=== PATIENT | male | born 1955 | race Caucasian/White ===

== ENCOUNTER 2020-12-09 10:56 | Inpatient (IN) | payer MEDICARE, MEDICAID ==
[~2020-12-09] VITALS: Ht 162.6 cm; Wt 87.1 kg
[2020-12-09 10:30] VITALS: BP 121/83
[2020-12-09] MEDS ORDERED: ACETAMINOPHEN 325 MG TABLET PO PRN (11:30)
[2020-12-09] MEDS ORDERED: METHYL SALICYLATE/MENTHOL TOPICAL OINTMENT 57GM TUBE. TP PRN (11:30)
[2020-12-09] MEDS ORDERED: MAG HYDROX/AL HYDROX/SIMETH 30 ML ORAL.SUSP PO PRN (11:30)
[2020-12-09] MEDS ORDERED: MAGNESIUM HYDROXIDE 2,400 MG/30 ML ORAL.SUSP. PO PRN (11:30)
[2020-12-09 12:24] LABS: BASO # 0.1 x10^3/uL (0.0-0.2); BASO % 1 % (0-3); EOS # 0.2 x10^3/uL (0.0-0.7); EOS % 5 % (0-3); HEMATOCRIT 40.4 % (39.0-53.0); HEMOGLOBIN 13.6 g/dL (13.0-17.5); LYMPH # 1.1 x10^3/uL (1.0-4.8); LYMPH % 24 % (24-48); MEAN CORPUSCULAR HEMOGLOBIN 33 pg (25-35); MEAN CORPUSCULAR HGB CONC 34 g/dL (31-37); MEAN CORPUSCULAR VOLUME 97 fL (79-100); MONO # 0.6 x10^3/uL (0.0-1.1); MONO % 12 % (0-9); NEUT # 2.8 x10^3uL (1.8-7.7); NEUT % 59 % (31-73); PLATELET COUNT 344 x10^3/uL (140-400); RED BLOOD COUNT 4.15 x10^6/uL (4.30-5.70); RED CELL DISTRIBUTION WIDTH 13.9 % (11.5-14.5); WHITE BLOOD COUNT 4.8 x10^3/uL (4.0-11.0)
[2020-12-09 12:40] LABS: ALBUMIN 3.8 g/dL (3.4-5.0); CALCIUM 9.8 mg/dL (8.5-10.1); GFR 74.8; MAGNESIUM 1.7 mg/dL (1.8-2.4); POTASSIUM 3.2 mmol/L (3.5-5.1); TOTAL BILIRUBIN 0.4 mg/dL (0.2-1.0); TOTAL PROTEIN 7.7 g/dL (6.4-8.2)
[2020-12-09] MEDS ORDERED: OLAN10TA9 PO (16:50)
[2020-12-09] MEDS ORDERED: PANT40TA3 PO (16:50)
[2020-12-09] MEDS ORDERED: CARB15DR72 EACH EAR (16:50)
[2020-12-09] MEDS ORDERED: LOSA100T14 PO (16:50)
[2020-12-09] MEDS ORDERED: HYDR12.58 PO (16:50)
[2020-12-09] MEDS ORDERED: CETI10TA16 PO (16:50)
[2020-12-09] MEDS ORDERED: AMLO-186 PO (16:50)
[2020-12-09] MEDS ORDERED: ATOR20TA58 PO (16:50)
[2020-12-09] MEDS ORDERED: METF500T16 PO (16:50)
[2020-12-09] MEDS: metFORMIN 500 MG TABLET PO SCH (17:00)
[2020-12-09 20:09] VITALS: BP 147/90
[2020-12-09] MEDS: ATORVASTATIN CALCIUM 20 MG TABLET PO SCH (21:01)
[2020-12-09] MEDS: DIVALPROEX ER 500 MG TAB.ER.24H PO SCH (21:47)
--- NOTE | 2020-12-09 21:59 | PDOC ---
Exam Note: Blair Note: Please also refer to the separate dictated note~for this date of service dictated separately.~Patient seen individually. Discussed the patient with Nursing staff reviewed the chart.~Reviewed interim history and current functioning. Reviewed vital signs,~Labs/ Radiology~and current medications noted below. Continue current treatment with the changes noted in the dictated addendum note Assessment: Vital Signs/I&O: Vital Signs Date Time Temp Pulse Resp B/P (MAP) Pulse Ox O2 Delivery O2 Flow Rate FiO2 12/09/20 20:09 97.6 83 18 147/90 (109) 94 Room Air Labs: Laboratory Tests Test 12/09/20 12:02 White Blood Count 4.8 x10^3/uL (4.0-11.0) Red Blood Count 4.15 x10^6/uL (4.30-5.70) L Hemoglobin 13.6 g/dL (13.0-17.5) Hematocrit 40.4 % (39.0-53.0) Mean Corpuscular Volume 97 fL (79-100) Mean Corpuscular Hemoglobin 33 pg (25-35) Mean Corpuscular Hemoglobin Concent 34 g/dL (31-37) Red Cell Distribution Width 13.9 % (11.5-14.5) Platelet Count 344 x10^3/uL (140-400) Neutrophils (%) (Auto) 59 % (31-73) Lymphocytes (%) (Auto) 24 % (24-48) Monocytes (%) (Auto) 12 % (0-9) H Eosinophils (%) (Auto) 5 % (0-3) H Basophils (%) (Auto) 1 % (0-3) Neutrophils # (Auto) 2.8 x10^3uL (1.8-7.7) Lymphocytes # (Auto) 1.1 x10^3/uL (1.0-4.8) Monocytes # (Auto) 0.6 x10^3/uL (0.0-1.1) Eosinophils # (Auto) 0.2 x10^3/uL (0.0-0.7) Basophils # (Auto) 0.1 x10^3/uL (0.0-0.2) D-Dimer (Radha) 1.45 mg/L (0.00-0.50) H Sodium Level 142 mmol/L (136-145) Potassium Level 3.2 mmol/L (3.5-5.1) L Chloride Level 104 mmol/L (98-107) Carbon Dioxide Level 30 mmol/L (21-32) Anion Gap 8 (6-14) Blood Urea Nitrogen 15 mg/dL (8-26) Creatinine 1.0 mg/dL (0.7-1.3) Estimated GFR (Cockcroft-Gault) 74.8 BUN/Creatinine Ratio 15 (6-20) Glucose Level 157 mg/dL (70-99) H Calcium Level 9.8 mg/dL (8.5-10.1) Magnesium Level 1.7 mg/dL (1.8-2.4) L Total Bilirubin 0.4 mg/dL (0.2-1.0) Aspartate Amino Transferase (AST) 35 U/L (15-37) Alanine Aminotransferase (ALT) 56 U/L (16-63) Alkaline Phosphatase 65 U/L (46-116) Total Protein 7.7 g/dL (6.4-8.2) Albumin 3.8 g/dL (3.4-5.0) Albumin/Globulin Ratio 1.0 (1.0-1.7) Current Medications: Meds: Current Medications Medications (Trade) Dose Ordered Sig/Dionne Route PRN Reason Start Time Stop Time Status Last Admin Dose Admin Atorvastatin Calcium (Lipitor) 20 mg QHS PO 12/09/20 21:00 12/09/20 21:01 Divalproex Sodium (Depakote Er) 500 mg QHS PO 12/09/20 21:00 12/09/20 21:47 I have reviewed the current psychotropics carefully including drug interactions. Risk benefit ratio favors no change other than as noted in my dictated progress note. Diagnosis: Problems: (1) Bipolar disorder MARILOU COURTNEY MD Dec 09, 2020 21:59
[2020-12-10 02:06] LABS: BILIRUBIN,URINE NEG (NEG); CLARITY,URINE CLEAR; COLOR,URINE YELLOW; GLUCOSE,URINE 100 mg/dL (NEG)
[2020-12-10 02:07] LABS: BACTERIA,URINE 0 /HPF (0-FEW); NITRITE,URINE NEG (NEG); RBC,URINE 0 /HPF (0-2); UROBILINOGEN,URINE 0.2 mg/dL (0.2 mg/dL); WBC,URINE OCC /HPF (0-4)
[2020-12-10 02:07] LABS: HEMOGLOBIN A1C 7.7 % (4.8-5.6); THYROXINE 7.5 ug/dL (4.5-12.0)
[2020-12-10 06:02] VITALS: BP 155/83
--- NOTE | 2020-12-10 06:35 | EKG ---
[address] [address] Test Date: 2020-12-09 Test Time: 17:06:24 Pat Name: LENNOX DE Department: Room: [address] [place] [address] Gender: M Line Cook: : 1955 Requested By: MARILOU COURTNEY Order Number: [id number] Reading MD: Measurements Intervals [place] Rate: P: ID: QRS: QRSD: T: QT: QTc: Interpretive Statements
[2020-12-10] MEDS: hydroCHLOROthiazide 12.5 MG CAPSULE PO SCH (08:14)
[2020-12-10] MEDS: PANTOPRAZOLE 40 MG TABLET. PO SCH (08:14)
[2020-12-10] MEDS: amLODIPine BESYLATE 5 MG TABLET PO SCH (08:14)
[2020-12-10] MEDS: LOSARTAN 50 MG TABLET. PO SCH (08:14)
[2020-12-10] MEDS: OLANZapine 10 MG TABLET PO SCH (08:14)
[2020-12-10] MEDS: metFORMIN 500 MG TABLET PO SCH ×2 (08:14→17:06)
[2020-12-10] MEDS: CETIRIZINE HCL 10 MG TABLET PO SCH (08:14)
--- NOTE | 2020-12-10 09:19 | HP ---
ADMIT DATE: 12/09/2020 IDENTIFYING DATA: The patient is a 64-year-old male, referred to us from [facility], referred by his outpatient psychiatrist/primary care physician on account of an acute exacerbation of his bipolar disorder and recent altered mental status with increased confusion. The patient has been increasingly agitated with marked mood lability, unable to be managed at the nursing facility, disruptive, aggressive. He has failed outpatient psychiatric interventions resulting in this referral. CHIEF COMPLAINT: "This sent me here for a checkup." HISTORY OF PRESENT ILLNESS: The patient has a history of bipolar disorder. He has been residing at the above facility for some time recently getting more confused, worsening mood swings, sleep and appetite changes. No active suicidal or homicidal ideation. PAST PSYCHIATRIC HISTORY: As above. MEDICAL HISTORY: Hyperlipidemia, type 2 diabetes mellitus. He has bilateral blindness, atelectasis in lungs of 12/05/2020. CODE STATUS: Full code. ALLERGIES: PLASTIC. Accu-Cheks daily. DIET: Takes a whole diet, finger foods. No added sugar or salt. ACTIVITY: Ambulate supervised only since he is blind. FAMILY HISTORY: Noncontributory. SOCIAL HISTORY: No history of alcohol or drug abuse, physical, sexual or elder abuse. He is not known to be a perpetrator. Reaction to hospitalization, the patient accepting of it. REVIEW OF SYSTEMS: Positive for bilateral blindness. No CV, , pulmonary, eye system symptoms on review. MENTAL STATUS EXAM: Oriented to himself. Insight, judgment, recent memory is impaired. Language function intact. Attention span short. Later on questioning, he was able to tell me he was admitted earlier today where he came from, perhaps less confused than he initially appeared. He remained somewhat manic. No suicidal or homicidal ideation. ASSETS: Supportive living at the above facility. IMPRESSION: Bipolar disorder, mixed with psychotic features; anxiety disorder, unspecified; impulse control disorder, unspecified; mild cognitive impairment. PLAN: Admit to the [facility] Unit at [facility]. I see the patient daily individually from a psychiatric standpoint. Medical followup with Dr. Pham/Dr. Chawla. Continue patient on his current psychotropics, observe baseline. Consider adding Depakote as a mood stabilizer. In fact, after a thorough review of his history and medications, we will go ahead and start Depakote ER 500 mg p.o. at bedtime. Check CBC, CMP, valproic acid level in 3 days. Continue Zyprexa 10 mg at bedtime for now. Estimated length of stay 10-12 days. DISPOSITION: Plans back to the intermediate when stable. ASHU/BLAIR/ALEXIA DR: ASHU/homer TID: [id number]
[2020-12-10 15:36] LABS: THYROID STIM HORMONE (TSH) 0.813 uIU/mL (0.358-3.740)
[2020-12-10 15:52] VITALS: BP 108/62
[2020-12-10] MEDS: DIVALPROEX ER 500 MG TAB.ER.24H PO SCH (21:31)
[2020-12-10] MEDS: ATORVASTATIN CALCIUM 20 MG TABLET PO SCH (21:31)
[2020-12-10] MEDS: MIRTAZAPINE 7.5 MG TABLET. PO SCH (21:31)
--- NOTE | 2020-12-10 22:14 | PDOC ---
Exam Note: Blair Note: Please also refer to the separate dictated note~for this date of service dictated separately.~Patient seen individually. Discussed the patient with Nursing staff reviewed the chart.~Reviewed interim history and current functioning. Reviewed vital signs,~Labs/ Radiology~and current medications noted below. Continue current treatment with the changes noted in the dictated addendum note Assessment: Vital Signs/I&O: Vital Signs Date Time Temp Pulse Resp B/P (MAP) Pulse Ox O2 Delivery O2 Flow Rate FiO2 12/10/20 15:52 97.3 85 18 108/62 (77) 94 Room Air I & O 12/09/20 12/09/20 12/10/20 15:00 23:00 07:00 Intake Total 362 ml 480 ml Balance 362 ml 480 ml Labs: Laboratory Tests Test 12/10/20 01:40 Urine Collection Type Unknown Urine Color Yellow Urine Clarity Clear Urine pH 6.5 Urine Specific [place] 1.015 Urine Protein Neg (NEG-TRACE) Urine Glucose (UA) 100 mg/dL (NEG) Urine Ketones (Stick) Neg mg/dL (NEG) Urine Blood Neg (NEG) Urine Nitrite Neg (NEG) Urine Bilirubin Neg (NEG) Urine Urobilinogen Dipstick 0.2 mg/dL (0.2 mg/dL) Urine Leukocyte Esterase Neg (NEG) Urine RBC 0 /HPF (0-2) Urine WBC Occ /HPF (0-4) Urine Squamous Epithelial Cells None /LPF Urine Bacteria 0 /HPF (0-FEW) Current Medications: Meds: Laboratory Tests Test 12/10/20 01:40 Urine Collection Type Unknown Urine Color Yellow Urine Clarity Clear Urine pH 6.5 Urine Specific [place] 1.015 Urine Protein Neg Urine Glucose (UA) 100 mg/dL Urine Ketones (Stick) Neg mg/dL Urine Blood Neg Urine Nitrite Neg Urine Bilirubin Neg Urine Urobilinogen Dipstick 0.2 mg/dL Urine Leukocyte Esterase Neg Urine RBC 0 /HPF Urine WBC Occ /HPF Urine Squamous Epithelial Cells None /LPF Urine Bacteria 0 /HPF Current Medications Medications (Trade) Dose Ordered Sig/Dionne Route PRN Reason Start Time Stop Time Status Last Admin Dose Admin Acetaminophen (Tylenol) 650 mg PRN Q6HRS PRN PO MILD PAIN / TEMP > 100.3'F 12/09/20 11:30 Multi-Ingredient Ointment (Analgesic [place]) 1 ayanna PRN QID PRN TP MUSCLE PAIN 12/09/20 11:30 Al Hydroxide/Mg Hydroxide (Mylanta Plus Xs) 15 ml PRN AFTMEALHC PRN PO DYSPEPSIA 12/09/20 11:30 Magnesium Hydroxide (Milk Of Magnesia) 2,400 mg PRN QHS PRN PO CONSTIPATION 12/09/20 11:30 Amlodipine Besylate (Norvasc) 5 mg DAILY PO 12/10/20 09:00 12/10/20 08:14 Atorvastatin Calcium (Lipitor) 20 mg QHS PO 12/09/20 21:00 12/10/20 21:31 Carbamide Peroxide (Debrox) 1 drop QMONTH AU 12/25/20 09:00 Cetirizine HCl (ZyrTEC) 10 mg DAILY PO 12/10/20 09:00 12/10/20 08:14 Metformin HCl (Glucophage) 500 mg BIDWMEALS PO 12/09/20 17:00 12/10/20 17:06 Olanzapine (ZyPREXA) 10 mg DAILY PO 12/10/20 09:00 12/10/20 08:14 Pantoprazole Sodium (Protonix) 40 mg DAILYAC PO 12/10/20 07:30 12/10/20 08:14 Hydrochlorothiazide (Microzide) 12.5 mg DAILY PO 12/10/20 09:00 12/10/20 08:14 Losartan Potassium (Cozaar) 100 mg DAILY PO 12/10/20 09:00 12/10/20 08:14 Divalproex Sodium (Depakote Er) 500 mg QHS PO 12/09/20 21:00 12/10/20 21:31 Potassium Chloride (Klor-Con) 20 meq DAILYWBKFT PO 12/11/20 08:00 Mirtazapine (Remeron) 7.5 mg QHS PO 12/10/20 21:00 12/10/20 21:31 Current Medications Medications (Trade) Dose Ordered Sig/Dionne Route PRN Reason Start Time Stop Time Status Last Admin Dose Admin Amlodipine Besylate (Norvasc) 5 mg DAILY PO 12/10/20 09:00 12/10/20 08:14 Cetirizine HCl (ZyrTEC) 10 mg DAILY PO 12/10/20 09:00 12/10/20 08:14 Olanzapine (ZyPREXA) 10 mg DAILY PO 12/10/20 09:00 12/10/20 08:14 Pantoprazole Sodium (Protonix) 40 mg DAILYAC PO 12/10/20 07:30 12/10/20 08:14 Hydrochlorothiazide (Microzide) 12.5 mg DAILY PO 12/10/20 09:00 12/10/20 08:14 Losartan Potassium (Cozaar) 100 mg DAILY PO 12/10/20 09:00 12/10/20 08:14 Mirtazapine (Remeron) 7.5 mg QHS PO 12/10/20 21:00 12/10/20 21:31 I have reviewed the current psychotropics carefully including drug interactions. Risk benefit ratio favors no change other than as noted in my dictated progress note. Diagnosis: Problems: (1) Anxiety disorder, unspecified (2) Impulse control disorder, unspecified (3) Mild cognitive impairment (4) Bipolar disorder, current episode mixed, severe, with psychotic features MARILOU COURTNEY MD Dec 10, 2020 22:14
[2020-12-11 06:29] VITALS: BP 125/80
[2020-12-11] MEDS: CETIRIZINE HCL 10 MG TABLET PO SCH (08:47)
[2020-12-11] MEDS: hydroCHLOROthiazide 12.5 MG CAPSULE PO SCH (08:47)
[2020-12-11] MEDS: POTASSIUM CHLORIDE 10 MEQ TABLET.ER. PO SCH (08:48)
[2020-12-11] MEDS: metFORMIN 500 MG TABLET PO SCH ×2 (08:48→17:11)
[2020-12-11] MEDS: LOSARTAN 50 MG TABLET. PO SCH (08:48)
[2020-12-11] MEDS: PANTOPRAZOLE 40 MG TABLET. PO SCH (08:48)
[2020-12-11] MEDS: amLODIPine BESYLATE 5 MG TABLET PO SCH (08:48)
[2020-12-11] MEDS: OLANZapine 10 MG TABLET PO SCH (08:48)
[2020-12-11] MEDS ORDERED: traZODone 50 MG TABLET. PO PRN (15:45)
[2020-12-11 15:47] VITALS: BP 127/78
[2020-12-11] MEDS: ATORVASTATIN CALCIUM 20 MG TABLET PO SCH (21:15)
[2020-12-11] MEDS: DIVALPROEX ER 500 MG TAB.ER.24H PO SCH (21:15)
[2020-12-11] MEDS: MIRTAZAPINE 7.5 MG TABLET. PO SCH (21:15)
--- NOTE | 2020-12-11 21:51 | PDOC ---
Exam Note: Blair Note: Please also refer to the separate dictated note~for this date of service dictated separately.~Patient seen individually. Discussed the patient with Nursing staff reviewed the chart.~Reviewed interim history and current functioning. Reviewed vital signs,~Labs/ Radiology~and current medications noted below. Continue current treatment with the changes noted in the dictated addendum note Assessment: Vital Signs/I&O: Vital Signs Date Time Temp Pulse Resp B/P (MAP) Pulse Ox O2 Delivery O2 Flow Rate FiO2 12/11/20 15:47 98.3 85 16 127/78 (94) 95 Room Air I & O 12/10/20 12/10/20 12/11/20 15:00 23:00 07:00 Intake Total 480 ml 480 ml Balance 480 ml 480 ml Current Medications: Meds: Current Medications Medications (Trade) Dose Ordered Sig/Dionne Route PRN Reason Start Time Stop Time Status Last Admin Dose Admin Acetaminophen (Tylenol) 650 mg PRN Q6HRS PRN PO MILD PAIN / TEMP > 100.3'F 12/09/20 11:30 Multi-Ingredient Ointment (Analgesic [place]) 1 ayanna PRN QID PRN TP MUSCLE PAIN 12/09/20 11:30 Al Hydroxide/Mg Hydroxide (Mylanta Plus Xs) 15 ml PRN AFTMEALHC PRN PO DYSPEPSIA 12/09/20 11:30 Magnesium Hydroxide (Milk Of Magnesia) 2,400 mg PRN QHS PRN PO CONSTIPATION 12/09/20 11:30 Amlodipine Besylate (Norvasc) 5 mg DAILY PO 12/10/20 09:00 12/11/20 08:48 Atorvastatin Calcium (Lipitor) 20 mg QHS PO 12/09/20 21:00 12/11/20 21:15 Carbamide Peroxide (Debrox) 1 drop QMONTH AU 12/25/20 09:00 Cetirizine HCl (ZyrTEC) 10 mg DAILY PO 12/10/20 09:00 12/11/20 08:47 Metformin HCl (Glucophage) 500 mg BIDWMEALS PO 12/09/20 17:00 12/11/20 17:11 Olanzapine (ZyPREXA) 10 mg DAILY PO 12/10/20 09:00 12/11/20 08:48 Pantoprazole Sodium (Protonix) 40 mg DAILYAC PO 12/10/20 07:30 5/1/21 08:48 Hydrochlorothiazide (Microzide) 12.5 mg DAILY PO 12/10/20 09:00 12/11/20 11:11 DC 12/11/20 08:47 Losartan Potassium (Cozaar) 100 mg DAILY PO 12/10/20 09:00 12/11/20 08:48 Divalproex Sodium (Depakote Er) 500 mg QHS PO 12/09/20 21:00 12/11/20 21:15 Potassium Chloride (Klor-Con) 20 meq DAILYWBKFT PO 12/11/20 08:00 12/11/20 08:48 Mirtazapine (Remeron) 7.5 mg QHS PO 12/10/20 21:00 12/11/20 21:15 Trazodone HCl (Desyrel) 50 mg PRN QHS PRN PO INSOMNIA MAY REPEAT X 1 12/11/20 15:45 12/11/20 21:16 Current Medications Medications (Trade) Dose Ordered Sig/Dionne Route PRN Reason Start Time Stop Time Status Last Admin Dose Admin Potassium Chloride (Klor-Con) 20 meq DAILYWBKFT PO 12/11/20 08:00 12/11/20 08:48 Trazodone HCl (Desyrel) 50 mg PRN QHS PRN PO INSOMNIA MAY REPEAT X 1 12/11/20 15:45 12/11/20 21:16 I have reviewed the current psychotropics carefully including drug interactions. Risk benefit ratio favors no change other than as noted in my dictated progress note. Diagnosis: Problems: (1) Impulse control disorder, unspecified (2) Mild cognitive impairment (3) Anxiety disorder, unspecified (4) Bipolar disorder, current episode mixed, severe, with psychotic features MARILOU COURTNEY MD December 11, 2020 21:51
--- NOTE | 2020-12-12 03:26 | CONS ---
DATE OF CONSULTATION: 12/11/2020 ATTENDING PHYSICIANS: Dr. Pizarro. REASON FOR CONSULTATION: We are asked to see this patient for medical consultation. HISTORY OF PRESENT ILLNESS: The patient is a 64-year-old gentleman from [facility] with a longstanding history of bipolar disorder, dementia and some mental retardation. He is legally blind. He has been very destructive. He has destroyed his room. He has had a manic episode, had not slept in 3 days, hearing voices, auditory hallucinations, increased confusion and disorganized. He was sent here from [place]. There were plans to go to a care home. He is here for further treatment and evaluation. His primary care doctor is Dr. Aiken at [place]. PAST MEDICAL HISTORY: Indicative for hyperlipidemia and essential hypertension as well as diabetes, adult onset. CURRENT MEDICATIONS: Include the following: He was on amlodipine, atorvastatin, cetirizine, hydrochlorothiazide, losartan, metformin, olanzapine and Protonix. ALLERGIES: HE HAS ALLERGIES TO PLASTICS, EXACT REACTION IS UNCLEAR OR WHAT KIND OF PLASTICS REMAINS TO BE SEEN THAT IS ON THE RECORD. FAMILY HISTORY: Unobtainable. REVIEW OF SYSTEMS: Unobtainable. PHYSICAL EXAMINATION: GENERAL: When I saw him, this is a pleasant gentleman who is legally blind. He has to be left to his room. VITAL SIGNS: Initial blood pressure was 125/80, pulse is 89 and regular, temperature 97.5 degrees Fahrenheit, oxygen saturation 94% on room air. HEENT: Head is without trauma. Pupils are reactive. He is legally blind. NECK: Supple, no bruits. LUNGS: Clear. CARDIOVASCULAR: Showed regular heart tones. No gallops. ABDOMEN: Soft, obese, protuberant. No organomegaly. Normoactive bowel sounds. EXTREMITIES: Show mild nonpitting edema. NEUROLOGIC FINDING: Pleasantly confused. He is ambulatory, but he is not aware of the situation. SKIN: Warm and dry. PERTINENT LABORATORY STUDIES: His hemoglobin on admission was 13.6 g/dL with a white count of 4800. Chemistry panel showed serum potassium of 3.3 mEq per liter, sodium 142 mEq, creatinine is 1.0 mg/dL. Nonfasting blood sugar 157. Hemoglobin A1c is 7.7 suggesting moderate control. Iron studies are normal. Transaminase and cholesterol are all within normal range. ASSESSMENT: 1. This is a 64-year-old gentleman, retirement patient, has bipolar disorder. He has had a recent manic phase. At this time, he appears medically stable. 2. Essential hypertension. 3. Type 2 diabetes with moderate control. 4. Mild asymptomatic hypokalemia due to his low dose diuretics. RECOMMENDATIONS: 1. The patient is stable from medical standpoint. 2. I would recommend some daily potassium supplementation with a recheck of chemistries on the schedule Mondays for inpatient. 3. I took the liberty of stopping his low dose hydrochlorothiazide. He has a little benefits, but causes significant electrolyte problems. 4. Other home meds will be continued. Thank you again for asking us to see this patient for medical consultation. We shall gladly follow along during his inpatient care. SAM/ABUNDIO DR: CYNDI/homer TID: [id number]
[2020-12-12 06:16] VITALS: BP 154/94
[2020-12-12] MEDS: metFORMIN 500 MG TABLET PO SCH ×2 (09:10→17:00)
[2020-12-12] MEDS: PANTOPRAZOLE 40 MG TABLET. PO SCH (09:11)
[2020-12-12] MEDS: CETIRIZINE HCL 10 MG TABLET PO SCH (09:11)
[2020-12-12] MEDS: POTASSIUM CHLORIDE 10 MEQ TABLET.ER. PO SCH (09:11)
[2020-12-12] MEDS: OLANZapine 10 MG TABLET PO SCH (09:11)
[2020-12-12] MEDS: amLODIPine BESYLATE 5 MG TABLET PO SCH (09:11)
[2020-12-12] MEDS: LOSARTAN 50 MG TABLET. PO SCH (09:11)
[2020-12-12 10:09] LABS: BASO % 1 % (0-3); EOS # 0.2 x10^3/uL (0.0-0.7); EOS % 4 % (0-3); HEMATOCRIT 39.7 % (39.0-53.0); HEMOGLOBIN 13.2 g/dL (13.0-17.5); LYMPH # 1.4 x10^3/uL (1.0-4.8); LYMPH % 23 % (24-48); MEAN CORPUSCULAR HEMOGLOBIN 32 pg (25-35); MEAN CORPUSCULAR HGB CONC 33 g/dL (31-37); MEAN CORPUSCULAR VOLUME 97 fL (79-100); MONO # 0.5 x10^3/uL (0.0-1.1); MONO % 8 % (0-9); NEUT % 65 % (31-73); PLATELET COUNT 303 x10^3/uL (140-400); RED BLOOD COUNT 4.11 x10^6/uL (4.30-5.70); RED CELL DISTRIBUTION WIDTH 13.9 % (11.5-14.5); WHITE BLOOD COUNT 6.2 x10^3/uL (4.0-11.0)
[2020-12-12 10:43] LABS: ALBUMIN 3.5 g/dL (3.4-5.0); ALBUMIN/GLOBULIN RATIO 0.9 (1.0-1.7); ALK PHOS 61 U/L (46-116); ALT (SGPT) 41 U/L (16-63); ANION GAP 10 (6-14); AST (SGOT) 23 U/L (15-37); BLOOD UREA NITROGEN 17 mg/dL (8-26); BUN/CREATININE RATIO 17 (6-20); CALCIUM 9.5 mg/dL (8.5-10.1); CARBON DIOXIDE 27 mmol/L (21-32); CHLORIDE 106 mmol/L (98-107); GFR 74.8; GLUCOSE 208 mg/dL (70-99); POTASSIUM 3.7 mmol/L (3.5-5.1); SODIUM 143 mmol/L (136-145); TOTAL BILIRUBIN 0.5 mg/dL (0.2-1.0); TOTAL PROTEIN 7.2 g/dL (6.4-8.2)
[2020-12-12 10:54] LABS: VAL ACID 54 mcg/mL (50-100)
[2020-12-12 16:12] VITALS: BP 118/83
[2020-12-12] MEDS: MIRTAZAPINE 7.5 MG TABLET. PO SCH (21:01)
[2020-12-12] MEDS: DIVALPROEX ER 500 MG TAB.ER.24H PO SCH (21:02)
[2020-12-12] MEDS: ATORVASTATIN CALCIUM 20 MG TABLET PO SCH (21:02)
--- NOTE | 2020-12-12 21:54 | PDOC ---
Exam Note: Blair Note: Please also refer to the separate dictated note~for this date of service dictated separately.~Patient seen individually. Discussed the patient with Nursing staff reviewed the chart.~Reviewed interim history and current functioning. Reviewed vital signs,~Labs/ Radiology~and current medications noted below. Continue current treatment with the changes noted in the dictated addendum note Assessment: Vital Signs/I&O: Vital Signs Date Time Temp Pulse Resp B/P (MAP) Pulse Ox O2 Delivery O2 Flow Rate FiO2 12/12/20 16:12 97.2 85 16 118/83 (95) 92 12/12/20 06:16 Room Air I & O 12/11/20 12/11/20 12/12/20 15:00 23:00 07:00 Intake Total 840 ml 720 ml Balance 840 ml 720 ml Labs: Laboratory Tests Test 12/12/20 09:40 White Blood Count 6.2 x10^3/uL (4.0-11.0) Red Blood Count 4.11 x10^6/uL (4.30-5.70) L Hemoglobin 13.2 g/dL (13.0-17.5) Hematocrit 39.7 % (39.0-53.0) Mean Corpuscular Volume 97 fL (79-100) Mean Corpuscular Hemoglobin 32 pg (25-35) Mean Corpuscular Hemoglobin Concent 33 g/dL (31-37) Red Cell Distribution Width 13.9 % (11.5-14.5) Platelet Count 303 x10^3/uL (140-400) Neutrophils (%) (Auto) 65 % (31-73) Lymphocytes (%) (Auto) 23 % (24-48) L Monocytes (%) (Auto) 8 % (0-9) Eosinophils (%) (Auto) 4 % (0-3) H Basophils (%) (Auto) 1 % (0-3) Neutrophils # (Auto) 4.0 x10^3uL (1.8-7.7) Lymphocytes # (Auto) 1.4 x10^3/uL (1.0-4.8) Monocytes # (Auto) 0.5 x10^3/uL (0.0-1.1) Eosinophils # (Auto) 0.2 x10^3/uL (0.0-0.7) Basophils # (Auto) 0.0 x10^3/uL (0.0-0.2) Sodium Level 143 mmol/L (136-145) Potassium Level 3.7 mmol/L (3.5-5.1) Chloride Level 106 mmol/L (98-107) Carbon Dioxide Level 27 mmol/L (21-32) Anion Gap 10 (6-14) Blood Urea Nitrogen 17 mg/dL (8-26) Creatinine 1.0 mg/dL (0.7-1.3) Estimated GFR (Cockcroft-Gault) 74.8 BUN/Creatinine Ratio 17 (6-20) Glucose Level 208 mg/dL (70-99) H Calcium Level 9.5 mg/dL (8.5-10.1) Total Bilirubin 0.5 mg/dL (0.2-1.0) Aspartate Amino Transferase (AST) 23 U/L (15-37) Alanine Aminotransferase (ALT) 41 U/L (16-63) Alkaline Phosphatase 61 U/L (46-116) Total Protein 7.2 g/dL (6.4-8.2) Albumin 3.5 g/dL (3.4-5.0) Albumin/Globulin Ratio 0.9 (1.0-1.7) L Valproic Acid Level 54 mcg/mL (50-100) Valproic Acid Last Dose Date 12/11/20 Valproic Acid Last Dose Time 2100 Current Medications: Meds: Laboratory Tests Test 12/12/20 09:40 White Blood Count 6.2 x10^3/uL Red Blood Count 4.11 x10^6/uL Hemoglobin 13.2 g/dL Hematocrit 39.7 % Mean Corpuscular Volume 97 fL Mean Corpuscular Hemoglobin 32 pg Mean Corpuscular Hemoglobin Concent 33 g/dL Red Cell Distribution Width 13.9 % Platelet Count 303 x10^3/uL Neutrophils (%) (Auto) 65 % Lymphocytes (%) (Auto) 23 % Monocytes (%) (Auto) 8 % Eosinophils (%) (Auto) 4 % Basophils (%) (Auto) 1 % Neutrophils # (Auto) 4.0 x10^3uL Lymphocytes # (Auto) 1.4 x10^3/uL Monocytes # (Auto) 0.5 x10^3/uL Eosinophils # (Auto) 0.2 x10^3/uL Basophils # (Auto) 0.0 x10^3/uL Sodium Level 143 mmol/L Potassium Level 3.7 mmol/L Chloride Level 106 mmol/L Carbon Dioxide Level 27 mmol/L Anion Gap 10 Blood Urea Nitrogen 17 mg/dL Creatinine 1.0 mg/dL Estimated GFR (Cockcroft-Gault) 74.8 BUN/Creatinine Ratio 17 Glucose Level 208 mg/dL Calcium Level 9.5 mg/dL Total Bilirubin 0.5 mg/dL Aspartate Amino Transf (AST/SGOT) 23 U/L Alanine Aminotransferase (ALT/SGPT) 41 U/L Alkaline Phosphatase 61 U/L Total Protein 7.2 g/dL Albumin 3.5 g/dL Albumin/Globulin Ratio 0.9 Valproic Acid (Depakene) Level 54 mcg/mL Valproic Acid Last Dose Date 12/11/20 Valproic Acid Last Dose Time 2100 Current Medications Medications (Trade) Dose Ordered Sig/Dionne Route PRN Reason Start Time Stop Time Status Last Admin Dose Admin Acetaminophen (Tylenol) 650 mg PRN Q6HRS PRN PO MILD PAIN / TEMP > 100.3'F 12/09/20 11:30 Multi-Ingredient Ointment (Analgesic [place]) 1 ayanna PRN QID PRN TP MUSCLE PAIN 12/09/20 11:30 Al Hydroxide/Mg Hydroxide (Mylanta Plus Xs) 15 ml PRN AFTMEALHC PRN PO DYSPEPSIA 12/09/20 11:30 Magnesium Hydroxide (Milk Of Magnesia) 2,400 mg PRN QHS PRN PO CONSTIPATION 12/09/20 11:30 Amlodipine Besylate (Norvasc) 5 mg DAILY PO 12/10/20 09:00 12/12/20 09:11 Atorvastatin Calcium (Lipitor) 20 mg QHS PO 12/09/20 21:00 12/12/20 21:02 Carbamide Peroxide (Debrox) 1 drop QMONTH AU 12/25/20 09:00 Cetirizine HCl (ZyrTEC) 10 mg DAILY PO 12/10/20 09:00 12/12/20 09:11 Metformin HCl (Glucophage) 500 mg BIDWMEALS PO 12/09/20 17:00 12/12/20 17:00 Olanzapine (ZyPREXA) 10 mg DAILY PO 12/10/20 09:00 12/12/20 09:11 Pantoprazole Sodium (Protonix) 40 mg DAILYAC PO 12/10/20 07:30 12/12/20 09:11 Hydrochlorothiazide (Microzide) 12.5 mg DAILY PO 12/10/20 09:00 12/11/20 11:11 DC 12/11/20 08:47 Losartan Potassium (Cozaar) 100 mg DAILY PO 12/10/20 09:00 12/12/20 09:11 Divalproex Sodium (Depakote Er) 500 mg QHS PO 12/09/20 21:00 12/12/20 21:02 Potassium Chloride (Klor-Con) 20 meq DAILYWBKFT PO 12/11/20 08:00 12/12/20 09:11 Mirtazapine (Remeron) 7.5 mg QHS PO 12/10/20 21:00 12/12/20 17:39 DC 12/11/20 21:15 Trazodone HCl (Desyrel) 50 mg PRN QHS PRN PO INSOMNIA MAY REPEAT X 1 12/11/20 15:45 12/11/20 21:16 Mirtazapine (Remeron) 15 mg QHS PO 12/12/20 21:00 12/12/20 21:01 Current Medications Medications (Trade) Dose Ordered Sig/Dionne Route PRN Reason Start Time Stop Time Status Last Admin Dose Admin Mirtazapine (Remeron) 15 mg QHS PO 12/12/20 21:00 12/12/20 21:01 I have reviewed the current psychotropics carefully including drug interactions. Risk benefit ratio favors no change other than as noted in my dictated progress note. Diagnosis: Problems: (1) Impulse control disorder, unspecified (2) Mild cognitive impairment (3) Anxiety disorder, unspecified (4) Bipolar disorder, current episode mixed, severe, with psychotic features MARILOU COURTNEY MD December 12, 2020 21:54
[2020-12-13 06:00] VITALS: BP 133/82
--- NOTE | 2020-12-13 06:47 | PDOC ---
Exam Note: Blair Note: This note is a late entry for 12/10/2020 covers elements not covered in my initial note. Subjective: The patient was reviewed in the morning of 12/10/2020 for a treatment team meeting with Natasha Young, Ita Samuels and Martina (geriatric social work professor), Iliana, activity therapy and Deyanira WAGNER, discussed and reviewed the chart. The patient slept 1-3/4 hours previous night. We reviewed the patients history at length. 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 Reportedly he was the youngest of 10 siblings. Some of the symptoms prompting admission were reviewed including not having slept in 3 days. He has been calm, hallucinating at times. At the facility he had destroyed his room and was destroying other objects around him. He was extremely impulsive. 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 Mental Status Exam: The patient is oriented to himself. Insight, judgment, recent memory is impaired. Language function intact. Attention span short. No suicidal or homicidal ideation. Laboratory Data: Reviewed. Impression: Bipolar disorder mixed with psychotic features. Anxiety disorder unspecified. Impulse control disorder unspecified. Mild cognitive impairment. Plan: Start Remeron 7.5 mg h.s. for insomnia. We may consider adding trazodone to this. Adjust further as clinically indicated. Assessment: Vital Signs/I&O: Vital Signs Date Time Temp Pulse Resp B/P (MAP) Pulse Ox O2 Delivery O2 Flow Rate FiO2 12/13/20 06:00 97.7 77 23 133/82 (99) 91 12/12/20 06:16 Room Air I & O 12/12/20 12/12/20 12/13/20 15:00 23:00 07:00 Intake Total 720 ml 600 ml Balance 720 ml 600 ml Labs: Laboratory Tests Test 12/12/20 09:40 White Blood Count 6.2 x10^3/uL (4.0-11.0) Red Blood Count 4.11 x10^6/uL (4.30-5.70) L Hemoglobin 13.2 g/dL (13.0-17.5) Hematocrit 39.7 % (39.0-53.0) Mean Corpuscular Volume 97 fL (79-100) Mean Corpuscular Hemoglobin 32 pg (25-35) Mean Corpuscular Hemoglobin Concent 33 g/dL (31-37) Red Cell Distribution Width 13.9 % (11.5-14.5) Platelet Count 303 x10^3/uL (140-400) Neutrophils (%) (Auto) 65 % (31-73) Lymphocytes (%) (Auto) 23 % (24-48) L Monocytes (%) (Auto) 8 % (0-9) Eosinophils (%) (Auto) 4 % (0-3) H Basophils (%) (Auto) 1 % (0-3) Neutrophils # (Auto) 4.0 x10^3uL (1.8-7.7) Lymphocytes # (Auto) 1.4 x10^3/uL (1.0-4.8) Monocytes # (Auto) 0.5 x10^3/uL (0.0-1.1) Eosinophils # (Auto) 0.2 x10^3/uL (0.0-0.7) Basophils # (Auto) 0.0 x10^3/uL (0.0-0.2) Sodium Level 143 mmol/L (136-145) Potassium Level 3.7 mmol/L (3.5-5.1) Chloride Level 106 mmol/L (98-107) Carbon Dioxide Level 27 mmol/L (21-32) Anion Gap 10 (6-14) Blood Urea Nitrogen 17 mg/dL (8-26) Creatinine 1.0 mg/dL (0.7-1.3) Estimated GFR (Cockcroft-Gault) 74.8 BUN/Creatinine Ratio 17 (6-20) Glucose Level 208 mg/dL (70-99) H Calcium Level 9.5 mg/dL (8.5-10.1) Total Bilirubin 0.5 mg/dL (0.2-1.0) Aspartate Amino Transferase (AST) 23 U/L (15-37) Alanine Aminotransferase (ALT) 41 U/L (16-63) Alkaline Phosphatase 61 U/L (46-116) Total Protein 7.2 g/dL (6.4-8.2) Albumin 3.5 g/dL (3.4-5.0) Albumin/Globulin Ratio 0.9 (1.0-1.7) L Valproic Acid Level 54 mcg/mL (50-100) Valproic Acid Last Dose Date 12/11/20 Valproic Acid Last Dose Time 2100 Current Medications: Meds: Laboratory Tests Test 12/12/20 09:40 White Blood Count 6.2 x10^3/uL Red Blood Count 4.11 x10^6/uL Hemoglobin 13.2 g/dL Hematocrit 39.7 % Mean Corpuscular Volume 97 fL Mean Corpuscular Hemoglobin 32 pg Mean Corpuscular Hemoglobin Concent 33 g/dL Red Cell Distribution Width 13.9 % Platelet Count 303 x10^3/uL Neutrophils (%) (Auto) 65 % Lymphocytes (%) (Auto) 23 % Monocytes (%) (Auto) 8 % Eosinophils (%) (Auto) 4 % Basophils (%) (Auto) 1 % Neutrophils # (Auto) 4.0 x10^3uL Lymphocytes # (Auto) 1.4 x10^3/uL Monocytes # (Auto) 0.5 x10^3/uL Eosinophils # (Auto) 0.2 x10^3/uL Basophils # (Auto) 0.0 x10^3/uL Sodium Level 143 mmol/L Potassium Level 3.7 mmol/L Chloride Level 106 mmol/L Carbon Dioxide Level 27 mmol/L Anion Gap 10 Blood Urea Nitrogen 17 mg/dL Creatinine 1.0 mg/dL Estimated GFR (Cockcroft-Gault) 74.8 BUN/Creatinine Ratio 17 Glucose Level 208 mg/dL Calcium Level 9.5 mg/dL Total Bilirubin 0.5 mg/dL Aspartate Amino Transf (AST/SGOT) 23 U/L Alanine Aminotransferase (ALT/SGPT) 41 U/L Alkaline Phosphatase 61 U/L Total Protein 7.2 g/dL Albumin 3.5 g/dL Albumin/Globulin Ratio 0.9 Valproic Acid (Depakene) Level 54 mcg/mL Valproic Acid Last Dose Date 12/11/20 Valproic Acid Last Dose Time 2100 Current Medications Medications (Trade) Dose Ordered Sig/Dionne Route PRN Reason Start Time Stop Time Status Last Admin Dose Admin Acetaminophen (Tylenol) 650 mg PRN Q6HRS PRN PO MILD PAIN / TEMP > 100.3'F 12/09/20 11:30 Multi-Ingredient Ointment (Analgesic [place]) 1 ayanna PRN QID PRN TP MUSCLE PAIN 12/09/20 11:30 Al Hydroxide/Mg Hydroxide (Mylanta Plus Xs) 15 ml PRN AFTMEALHC PRN PO DYSPEPSIA 12/09/20 11:30 Magnesium Hydroxide (Milk Of Magnesia) 2,400 mg PRN QHS PRN PO CONSTIPATION 12/09/20 11:30 Amlodipine Besylate (Norvasc) 5 mg DAILY PO 12/10/20 09:00 12/12/20 09:11 Atorvastatin Calcium (Lipitor) 20 mg QHS PO 12/09/20 21:00 12/12/20 21:02 Carbamide Peroxide (Debrox) 1 drop QMONTH AU 12/25/20 09:00 Cetirizine HCl (ZyrTEC) 10 mg DAILY PO 12/10/20 09:00 12/12/20 09:11 Metformin HCl (Glucophage) 500 mg BIDWMEALS PO 12/09/20 17:00 12/12/20 17:00 Olanzapine (ZyPREXA) 10 mg DAILY PO 12/10/20 09:00 12/12/20 09:11 Pantoprazole Sodium (Protonix) 40 mg DAILYAC PO 12/10/20 07:30 12/12/20 09:11 Hydrochlorothiazide (Microzide) 12.5 mg DAILY PO 12/10/20 09:00 12/11/20 11:11 DC 12/11/20 08:47 Losartan Potassium (Cozaar) 100 mg DAILY PO 12/10/20 09:00 12/12/20 09:11 Divalproex Sodium (Depakote Er) 500 mg QHS PO 12/09/20 21:00 12/12/20 21:02 Potassium Chloride (Klor-Con) 20 meq DAILYWBKFT PO 12/11/20 08:00 12/12/20 09:11 Mirtazapine (Remeron) 7.5 mg QHS PO 12/10/20 21:00 12/12/20 17:39 DC 12/11/20 21:15 Trazodone HCl (Desyrel) 50 mg PRN QHS PRN PO INSOMNIA MAY REPEAT X 1 12/11/20 15:45 12/11/20 21:16 Mirtazapine (Remeron) 15 mg QHS PO 12/12/20 21:00 12/12/20 21:01 Current Medications Medications (Trade) Dose Ordered Sig/Dionne Route PRN Reason Start Time Stop Time Status Last Admin Dose Admin Mirtazapine (Remeron) 15 mg QHS PO 12/12/20 21:00 12/12/20 21:01 I have reviewed the current psychotropics carefully including drug interactions. Risk benefit ratio favors no change other than as noted in my dictated progress note. Diagnosis: Problems: (1) Bipolar disorder, current episode mixed, severe, with psychotic features (2) Mild cognitive impairment (3) Impulse control disorder, unspecified (4) Anxiety disorder, unspecified MARILOU COURTNEY MD December 13, 2020 06:47
--- NOTE | 2020-12-13 07:22 | PDOC ---
Exam Note: Blair Note: This note is a late entry for 12/11/2020 covers elements not covered in my initial note. Subjective: The patient was seen individually in the evening of 12/11/2020 with Omid WAGNER, discussed and reviewed the chart. The patient slept poorly for 2 hours previous night. We will make it sure that the staff gives him his Zyprexa p.r.n. 50 mg, may repeat x1. Review of Systems: Bilateral blindness. No CV, , pulmonary, ENT system symptoms on review. Mental Status Exam: The patient is oriented to himself. Insight, judgment, recent memory is impaired. Language function intact. Attention span short. No suicidal or homicidal ideation. Laboratory Data: Reviewed. Impression: Bipolar disorder mixed with psychotic features. Anxiety disorder unspecified. Impulse control disorder unspecified. Plan: We will continue Remeron 7.5 mg h.s. We will consider increasing it later. Start trazodone 50 mg h.s. p.r.n. h.s., may repeat x1. Adjust further as clinically indicated. Assessment: Vital Signs/I&O: Vital Signs Date Time Temp Pulse Resp B/P (MAP) Pulse Ox O2 Delivery O2 Flow Rate FiO2 12/13/20 06:00 97.7 77 23 133/82 (99) 91 12/12/20 06:16 Room Air I & O 12/12/20 12/12/20 12/13/20 15:00 23:00 07:00 Intake Total 720 ml 600 ml Balance 720 ml 600 ml Labs: Laboratory Tests Test 12/12/20 09:40 White Blood Count 6.2 x10^3/uL (4.0-11.0) Red Blood Count 4.11 x10^6/uL (4.30-5.70) L Hemoglobin 13.2 g/dL (13.0-17.5) Hematocrit 39.7 % (39.0-53.0) Mean Corpuscular Volume 97 fL (79-100) Mean Corpuscular Hemoglobin 32 pg (25-35) Mean Corpuscular Hemoglobin Concent 33 g/dL (31-37) Red Cell Distribution Width 13.9 % (11.5-14.5) Platelet Count 303 x10^3/uL (140-400) Neutrophils (%) (Auto) 65 % (31-73) Lymphocytes (%) (Auto) 23 % (24-48) L Monocytes (%) (Auto) 8 % (0-9) Eosinophils (%) (Auto) 4 % (0-3) H Basophils (%) (Auto) 1 % (0-3) Neutrophils # (Auto) 4.0 x10^3uL (1.8-7.7) Lymphocytes # (Auto) 1.4 x10^3/uL (1.0-4.8) Monocytes # (Auto) 0.5 x10^3/uL (0.0-1.1) Eosinophils # (Auto) 0.2 x10^3/uL (0.0-0.7) Basophils # (Auto) 0.0 x10^3/uL (0.0-0.2) Sodium Level 143 mmol/L (136-145) Potassium Level 3.7 mmol/L (3.5-5.1) Chloride Level 106 mmol/L (98-107) Carbon Dioxide Level 27 mmol/L (21-32) Anion Gap 10 (6-14) Blood Urea Nitrogen 17 mg/dL (8-26) Creatinine 1.0 mg/dL (0.7-1.3) Estimated GFR (Cockcroft-Gault) 74.8 BUN/Creatinine Ratio 17 (6-20) Glucose Level 208 mg/dL (70-99) H Calcium Level 9.5 mg/dL (8.5-10.1) Total Bilirubin 0.5 mg/dL (0.2-1.0) Aspartate Amino Transferase (AST) 23 U/L (15-37) Alanine Aminotransferase (ALT) 41 U/L (16-63) Alkaline Phosphatase 61 U/L (46-116) Total Protein 7.2 g/dL (6.4-8.2) Albumin 3.5 g/dL (3.4-5.0) Albumin/Globulin Ratio 0.9 (1.0-1.7) L Valproic Acid Level 54 mcg/mL (50-100) Valproic Acid Last Dose Date 12/11/20 Valproic Acid Last Dose Time 2100 Current Medications: Meds: Laboratory Tests Test 12/12/20 09:40 White Blood Count 6.2 x10^3/uL Red Blood Count 4.11 x10^6/uL Hemoglobin 13.2 g/dL Hematocrit 39.7 % Mean Corpuscular Volume 97 fL Mean Corpuscular Hemoglobin 32 pg Mean Corpuscular Hemoglobin Concent 33 g/dL Red Cell Distribution Width 13.9 % Platelet Count 303 x10^3/uL Neutrophils (%) (Auto) 65 % Lymphocytes (%) (Auto) 23 % Monocytes (%) (Auto) 8 % Eosinophils (%) (Auto) 4 % Basophils (%) (Auto) 1 % Neutrophils # (Auto) 4.0 x10^3uL Lymphocytes # (Auto) 1.4 x10^3/uL Monocytes # (Auto) 0.5 x10^3/uL Eosinophils # (Auto) 0.2 x10^3/uL Basophils # (Auto) 0.0 x10^3/uL Sodium Level 143 mmol/L Potassium Level 3.7 mmol/L Chloride Level 106 mmol/L Carbon Dioxide Level 27 mmol/L Anion Gap 10 Blood Urea Nitrogen 17 mg/dL Creatinine 1.0 mg/dL Estimated GFR (Cockcroft-Gault) 74.8 BUN/Creatinine Ratio 17 Glucose Level 208 mg/dL Calcium Level 9.5 mg/dL Total Bilirubin 0.5 mg/dL Aspartate Amino Transf (AST/SGOT) 23 U/L Alanine Aminotransferase (ALT/SGPT) 41 U/L Alkaline Phosphatase 61 U/L Total Protein 7.2 g/dL Albumin 3.5 g/dL Albumin/Globulin Ratio 0.9 Valproic Acid (Depakene) Level 54 mcg/mL Valproic Acid Last Dose Date 12/11/20 Valproic Acid Last Dose Time 2100 Current Medications Medications (Trade) Dose Ordered Sig/Dionne Route PRN Reason Start Time Stop Time Status Last Admin Dose Admin Acetaminophen (Tylenol) 650 mg PRN Q6HRS PRN PO MILD PAIN / TEMP > 100.3'F 12/09/20 11:30 Multi-Ingredient Ointment (Analgesic [place]) 1 ayanna PRN QID PRN TP MUSCLE PAIN 12/09/20 11:30 Al Hydroxide/Mg Hydroxide (Mylanta Plus Xs) 15 ml PRN AFTMEALHC PRN PO DYSPEPSIA 12/09/20 11:30 Magnesium Hydroxide (Milk Of Magnesia) 2,400 mg PRN QHS PRN PO CONSTIPATION 12/09/20 11:30 Amlodipine Besylate (Norvasc) 5 mg DAILY PO 12/10/20 09:00 12/12/20 09:11 Atorvastatin Calcium (Lipitor) 20 mg QHS PO 12/09/20 21:00 12/12/20 21:02 Carbamide Peroxide (Debrox) 1 drop QMONTH AU 12/25/20 09:00 Cetirizine HCl (ZyrTEC) 10 mg DAILY PO 12/10/20 09:00 12/12/20 09:11 Metformin HCl (Glucophage) 500 mg BIDWMEALS PO 12/09/20 17:00 12/12/20 17:00 Olanzapine (ZyPREXA) 10 mg DAILY PO 12/10/20 09:00 12/12/20 09:11 Pantoprazole Sodium (Protonix) 40 mg DAILYAC PO 12/10/20 07:30 12/12/20 09:11 Hydrochlorothiazide (Microzide) 12.5 mg DAILY PO 12/10/20 09:00 12/11/20 11:11 DC 12/11/20 08:47 Losartan Potassium (Cozaar) 100 mg DAILY PO 12/10/20 09:00 12/12/20 09:11 Divalproex Sodium (Depakote Er) 500 mg QHS PO 12/09/20 21:00 12/12/20 21:02 Potassium Chloride (Klor-Con) 20 meq DAILYWBKFT PO 12/11/20 08:00 12/12/20 09:11 Mirtazapine (Remeron) 7.5 mg QHS PO 12/10/20 21:00 12/12/20 17:39 DC 12/11/20 21:15 Trazodone HCl (Desyrel) 50 mg PRN QHS PRN PO INSOMNIA MAY REPEAT X 1 12/11/20 15:45 12/11/20 21:16 Mirtazapine (Remeron) 15 mg QHS PO 12/12/20 21:00 12/12/20 21:01 Current Medications Medications (Trade) Dose Ordered Sig/Dionne Route PRN Reason Start Time Stop Time Status Last Admin Dose Admin Mirtazapine (Remeron) 15 mg QHS PO 12/12/20 21:00 12/12/20 21:01 I have reviewed the current psychotropics carefully including drug interactions. Risk benefit ratio favors no change other than as noted in my dictated progress note. Diagnosis: Problems: (1) Impulse control disorder, unspecified (2) Mild cognitive impairment (3) Anxiety disorder, unspecified (4) Bipolar disorder, current episode mixed, severe, with psychotic features MARILOU COURTNEY MD December 13, 2020 07:22
--- NOTE | 2020-12-13 07:47 | PDOC ---
Exam Note: Blair Note: This note is a late entry for 12/12/2020 covers elements not covered in my initial note. Subjective: The patient was seen individually in the evening of 12/12/2020 with Omid WAGNER, discussed and reviewed the chart. The patient slept for 2-1/2 hours previous night but trazodone was not repeated last night. We will go ahead and increase the Remeron to 15 mg p.o. h.s. to help with insomnia. Review of Systems: Positive for bilateral blindness. No CV, , pulmonary, ENT system symptoms on review. Mental Status Exam: The patient is oriented to himself. Insight, judgment, recent memory is impaired. Language function intact. Attention span short. No suicidal or homicidal ideation. Laboratory Data: Reviewed. Impression: Bipolar disorder mixed with psychotic features. Anxiety disorder unspecified. Impulse control disorder unspecified. Plan: Continue current psychotropics. Assessment: Vital Signs/I&O: Vital Signs Date Time Temp Pulse Resp B/P (MAP) Pulse Ox O2 Delivery O2 Flow Rate FiO2 12/13/20 06:00 97.7 77 23 133/82 (99) 91 12/12/20 06:16 Room Air I & O 12/12/20 12/12/20 12/13/20 14:59 22:59 06:59 Intake Total 720 ml 600 ml Balance 720 ml 600 ml Labs: Laboratory Tests Test 12/12/20 09:40 White Blood Count 6.2 x10^3/uL (4.0-11.0) Red Blood Count 4.11 x10^6/uL (4.30-5.70) L Hemoglobin 13.2 g/dL (13.0-17.5) Hematocrit 39.7 % (39.0-53.0) Mean Corpuscular Volume 97 fL (79-100) Mean Corpuscular Hemoglobin 32 pg (25-35) Mean Corpuscular Hemoglobin Concent 33 g/dL (31-37) Red Cell Distribution Width 13.9 % (11.5-14.5) Platelet Count 303 x10^3/uL (140-400) Neutrophils (%) (Auto) 65 % (31-73) Lymphocytes (%) (Auto) 23 % (24-48) L Monocytes (%) (Auto) 8 % (0-9) Eosinophils (%) (Auto) 4 % (0-3) H Basophils (%) (Auto) 1 % (0-3) Neutrophils # (Auto) 4.0 x10^3uL (1.8-7.7) Lymphocytes # (Auto) 1.4 x10^3/uL (1.0-4.8) Monocytes # (Auto) 0.5 x10^3/uL (0.0-1.1) Eosinophils # (Auto) 0.2 x10^3/uL (0.0-0.7) Basophils # (Auto) 0.0 x10^3/uL (0.0-0.2) Sodium Level 143 mmol/L (136-145) Potassium Level 3.7 mmol/L (3.5-5.1) Chloride Level 106 mmol/L (98-107) Carbon Dioxide Level 27 mmol/L (21-32) Anion Gap 10 (6-14) Blood Urea Nitrogen 17 mg/dL (8-26) Creatinine 1.0 mg/dL (0.7-1.3) Estimated GFR (Cockcroft-Gault) 74.8 BUN/Creatinine Ratio 17 (6-20) Glucose Level 208 mg/dL (70-99) H Calcium Level 9.5 mg/dL (8.5-10.1) Total Bilirubin 0.5 mg/dL (0.2-1.0) Aspartate Amino Transferase (AST) 23 U/L (15-37) Alanine Aminotransferase (ALT) 41 U/L (16-63) Alkaline Phosphatase 61 U/L (46-116) Total Protein 7.2 g/dL (6.4-8.2) Albumin 3.5 g/dL (3.4-5.0) Albumin/Globulin Ratio 0.9 (1.0-1.7) L Valproic Acid Level 54 mcg/mL (50-100) Valproic Acid Last Dose Date 12/11/20 Valproic Acid Last Dose Time 2100 Current Medications: Meds: Laboratory Tests Test 12/12/20 09:40 White Blood Count 6.2 x10^3/uL Red Blood Count 4.11 x10^6/uL Hemoglobin 13.2 g/dL Hematocrit 39.7 % Mean Corpuscular Volume 97 fL Mean Corpuscular Hemoglobin 32 pg Mean Corpuscular Hemoglobin Concent 33 g/dL Red Cell Distribution Width 13.9 % Platelet Count 303 x10^3/uL Neutrophils (%) (Auto) 65 % Lymphocytes (%) (Auto) 23 % Monocytes (%) (Auto) 8 % Eosinophils (%) (Auto) 4 % Basophils (%) (Auto) 1 % Neutrophils # (Auto) 4.0 x10^3uL Lymphocytes # (Auto) 1.4 x10^3/uL Monocytes # (Auto) 0.5 x10^3/uL Eosinophils # (Auto) 0.2 x10^3/uL Basophils # (Auto) 0.0 x10^3/uL Sodium Level 143 mmol/L Potassium Level 3.7 mmol/L Chloride Level 106 mmol/L Carbon Dioxide Level 27 mmol/L Anion Gap 10 Blood Urea Nitrogen 17 mg/dL Creatinine 1.0 mg/dL Estimated GFR (Cockcroft-Gault) 74.8 BUN/Creatinine Ratio 17 Glucose Level 208 mg/dL Calcium Level 9.5 mg/dL Total Bilirubin 0.5 mg/dL Aspartate Amino Transf (AST/SGOT) 23 U/L Alanine Aminotransferase (ALT/SGPT) 41 U/L Alkaline Phosphatase 61 U/L Total Protein 7.2 g/dL Albumin 3.5 g/dL Albumin/Globulin Ratio 0.9 Valproic Acid (Depakene) Level 54 mcg/mL Valproic Acid Last Dose Date 12/11/20 Valproic Acid Last Dose Time 2100 Current Medications Medications (Trade) Dose Ordered Sig/Dionne Route PRN Reason Start Time Stop Time Status Last Admin Dose Admin Acetaminophen (Tylenol) 650 mg PRN Q6HRS PRN PO MILD PAIN / TEMP > 100.3'F 12/09/20 11:30 Multi-Ingredient Ointment (Analgesic [place]) 1 ayanna PRN QID PRN TP MUSCLE PAIN 12/09/20 11:30 Al Hydroxide/Mg Hydroxide (Mylanta Plus Xs) 15 ml PRN AFTMEALHC PRN PO DYSPEPSIA 12/09/20 11:30 Magnesium Hydroxide (Milk Of Magnesia) 2,400 mg PRN QHS PRN PO CONSTIPATION 12/09/20 11:30 Amlodipine Besylate (Norvasc) 5 mg DAILY PO 12/10/20 09:00 12/12/20 09:11 Atorvastatin Calcium (Lipitor) 20 mg QHS PO 12/09/20 21:00 12/12/20 21:02 Carbamide Peroxide (Debrox) 1 drop QMONTH AU 12/25/20 09:00 Cetirizine HCl (ZyrTEC) 10 mg DAILY PO 12/10/20 09:00 12/12/20 09:11 Metformin HCl (Glucophage) 500 mg BIDWMEALS PO 12/09/20 17:00 12/12/20 17:00 Olanzapine (ZyPREXA) 10 mg DAILY PO 12/10/20 09:00 12/12/20 09:11 Pantoprazole Sodium (Protonix) 40 mg DAILYAC PO 12/10/20 07:30 12/12/20 09:11 Hydrochlorothiazide (Microzide) 12.5 mg DAILY PO 12/10/20 09:00 12/11/20 11:11 DC 12/11/20 08:47 Losartan Potassium (Cozaar) 100 mg DAILY PO 12/10/20 09:00 12/12/20 09:11 Divalproex Sodium (Depakote Er) 500 mg QHS PO 12/09/20 21:00 12/12/20 21:02 Potassium Chloride (Klor-Con) 20 meq DAILYWBKFT PO 12/11/20 08:00 12/12/20 09:11 Mirtazapine (Remeron) 7.5 mg QHS PO 12/10/20 21:00 12/12/20 17:39 DC 12/11/20 21:15 Trazodone HCl (Desyrel) 50 mg PRN QHS PRN PO INSOMNIA MAY REPEAT X 1 12/11/20 15:45 12/11/20 21:16 Mirtazapine (Remeron) 15 mg QHS PO 12/12/20 21:00 12/12/20 21:01 Current Medications Medications (Trade) Dose Ordered Sig/Dionne Route PRN Reason Start Time Stop Time Status Last Admin Dose Admin Mirtazapine (Remeron) 15 mg QHS PO 12/12/20 21:00 12/12/20 21:01 I have reviewed the current psychotropics carefully including drug interactions. Risk benefit ratio favors no change other than as noted in my dictated progress note. Diagnosis: Problems: (1) Impulse control disorder, unspecified (2) Mild cognitive impairment (3) Anxiety disorder, unspecified (4) Bipolar disorder, current episode mixed, severe, with psychotic features MARILOU COURTNEY MD December 13, 2020 07:46
[2020-12-13] MEDS: amLODIPine BESYLATE 5 MG TABLET PO SCH (07:58)
[2020-12-13] MEDS: LOSARTAN 50 MG TABLET. PO SCH (07:58)
[2020-12-13] MEDS: metFORMIN 500 MG TABLET PO SCH ×2 (07:59→17:15)
[2020-12-13] MEDS: POTASSIUM CHLORIDE 10 MEQ TABLET.ER. PO SCH (07:59)
[2020-12-13] MEDS: CETIRIZINE HCL 10 MG TABLET PO SCH (07:59)
[2020-12-13] MEDS: PANTOPRAZOLE 40 MG TABLET. PO SCH (07:59)
[2020-12-13] MEDS: OLANZapine 10 MG TABLET PO SCH (07:59)
[2020-12-13 15:45] VITALS: BP 128/77
[2020-12-13] MEDS ORDERED: traZODone 100 MG TABLET. PO PRN (18:30)
[2020-12-13] MEDS: DIVALPROEX ER 500 MG TAB.ER.24H PO SCH (19:58)
[2020-12-13] MEDS: ATORVASTATIN CALCIUM 20 MG TABLET PO SCH (19:59)
[2020-12-13] MEDS: MIRTAZAPINE 7.5 MG TABLET. PO SCH (19:59)
--- NOTE | 2020-12-13 21:52 | PDOC ---
Exam Note: Blair Note: Please also refer to the separate dictated note~for this date of service dictated separately.~Patient seen individually. Discussed the patient with Nursing staff reviewed the chart.~Reviewed interim history and current functioning. Reviewed vital signs,~Labs/ Radiology~and current medications noted below. Continue current treatment with the changes noted in the dictated addendum note Assessment: Vital Signs/I&O: Vital Signs Date Time Temp Pulse Resp B/P (MAP) Pulse Ox O2 Delivery O2 Flow Rate FiO2 12/13/20 15:45 97.3 82 18 128/77 (94) 93 12/12/20 06:16 Room Air I & O 12/12/20 12/12/20 12/13/20 15:00 23:00 07:00 Intake Total 720 ml 600 ml Balance 720 ml 600 ml Current Medications: Meds: Current Medications Medications (Trade) Dose Ordered Sig/Dionne Route PRN Reason Start Time Stop Time Status Last Admin Dose Admin Acetaminophen (Tylenol) 650 mg PRN Q6HRS PRN PO MILD PAIN / TEMP > 100.3'F 12/09/20 11:30 Multi-Ingredient Ointment (Analgesic [place]) 1 ayanna PRN QID PRN TP MUSCLE PAIN 12/09/20 11:30 Al Hydroxide/Mg Hydroxide (Mylanta Plus Xs) 15 ml PRN AFTMEALHC PRN PO DYSPEPSIA 12/09/20 11:30 Magnesium Hydroxide (Milk Of Magnesia) 2,400 mg PRN QHS PRN PO CONSTIPATION 12/09/20 11:30 Amlodipine Besylate (Norvasc) 5 mg DAILY PO 12/10/20 09:00 12/13/20 07:58 Atorvastatin Calcium (Lipitor) 20 mg QHS PO 12/09/20 21:00 12/13/20 19:59 Carbamide Peroxide (Debrox) 1 drop QMONTH AU 12/25/20 09:00 Cetirizine HCl (ZyrTEC) 10 mg DAILY PO 12/10/20 09:00 12/13/20 07:59 Metformin HCl (Glucophage) 500 mg BIDWMEALS PO 12/09/20 17:00 12/13/20 17:15 Olanzapine (ZyPREXA) 10 mg DAILY PO 12/10/20 09:00 12/13/20 07:59 Pantoprazole Sodium (Protonix) 40 mg DAILYAC PO 12/10/20 07:30 12/13/20 07:59 Hydrochlorothiazide (Microzide) 12.5 mg DAILY PO 12/10/20 09:00 12/11/20 11:11 DC 12/11/20 08:47 Losartan Potassium (Cozaar) 100 mg DAILY PO 12/10/20 09:00 12/13/20 07:58 Divalproex Sodium (Depakote Er) 500 mg QHS PO 12/09/20 21:00 12/13/20 19:58 Potassium Chloride (Klor-Con) 20 meq DAILYWBKFT PO 12/11/20 08:00 12/13/20 07:59 Mirtazapine (Remeron) 7.5 mg QHS PO 12/10/20 21:00 12/12/20 17:39 DC 12/11/20 21:15 Trazodone HCl (Desyrel) 50 mg PRN QHS PRN PO INSOMNIA MAY REPEAT X 1 12/11/20 15:45 12/13/20 18:13 DC 12/11/20 21:16 Mirtazapine (Remeron) 15 mg QHS PO 12/12/20 21:00 12/13/20 19:59 Trazodone HCl (Desyrel) 100 mg PRN QHS PRN PO INSOMNIA MAY REPEAT X 1 12/13/20 18:30 I have reviewed the current psychotropics carefully including drug interactions. Risk benefit ratio favors no change other than as noted in my dictated progress note. Diagnosis: Problems: (1) Impulse control disorder, unspecified (2) Mild cognitive impairment (3) Anxiety disorder, unspecified (4) Bipolar disorder, current episode mixed, severe, with psychotic features MARILOU COURTNEY MD December 13, 2020 21:51
[2020-12-14 04:56] VITALS: BP 132/75
[2020-12-14] MEDS: LOSARTAN 50 MG TABLET. PO SCH (07:58)
[2020-12-14] MEDS: OLANZapine 10 MG TABLET PO SCH (07:58)
[2020-12-14] MEDS: amLODIPine BESYLATE 5 MG TABLET PO SCH (07:59)
[2020-12-14] MEDS: PANTOPRAZOLE 40 MG TABLET. PO SCH (07:59)
[2020-12-14] MEDS: POTASSIUM CHLORIDE 10 MEQ TABLET.ER. PO SCH (07:59)
[2020-12-14] MEDS: CETIRIZINE HCL 10 MG TABLET PO SCH (07:59)
[2020-12-14] MEDS: metFORMIN 500 MG TABLET PO SCH ×2 (07:59→16:59)
[2020-12-14 15:26] VITALS: BP 116/76
[2020-12-14] MEDS: ATORVASTATIN CALCIUM 20 MG TABLET PO SCH (21:17)
[2020-12-14] MEDS: DIVALPROEX ER 500 MG TAB.ER.24H PO SCH (21:17)
[2020-12-14] MEDS: MIRTAZAPINE 7.5 MG TABLET. PO SCH (21:17)
--- NOTE | 2020-12-14 22:42 | PDOC ---
Exam Note: Blair Note: Please also refer to the separate dictated note~for this date of service dictated separately.~Patient seen individually. Discussed the patient with Nursing staff reviewed the chart.~Reviewed interim history and current functioning. Reviewed vital signs,~Labs/ Radiology~and current medications noted below. Continue current treatment with the changes noted in the dictated addendum note Assessment: Vital Signs/I&O: Vital Signs Date Time Temp Pulse Resp B/P (MAP) Pulse Ox O2 Delivery O2 Flow Rate FiO2 12/14/20 15:26 97.0 89 16 116/76 (89) 95 12/12/20 06:16 Room Air I & O 12/13/20 12/13/20 12/14/20 15:00 23:00 07:00 Intake Total 600 ml 480 ml Balance 600 ml 480 ml Current Medications: Meds: Current Medications Medications (Trade) Dose Ordered Sig/Dionne Route PRN Reason Start Time Stop Time Status Last Admin Dose Admin Acetaminophen (Tylenol) 650 mg PRN Q6HRS PRN PO MILD PAIN / TEMP > 100.3'F 12/09/20 11:30 Multi-Ingredient Ointment (Analgesic [place]) 1 ayanna PRN QID PRN TP MUSCLE PAIN 12/09/20 11:30 Al Hydroxide/Mg Hydroxide (Mylanta Plus Xs) 15 ml PRN AFTMEALHC PRN PO DYSPEPSIA 12/09/20 11:30 Magnesium Hydroxide (Milk Of Magnesia) 2,400 mg PRN QHS PRN PO CONSTIPATION 12/09/20 11:30 Amlodipine Besylate (Norvasc) 5 mg DAILY PO 12/10/20 09:00 12/14/20 07:59 Atorvastatin Calcium (Lipitor) 20 mg QHS PO 12/09/20 21:00 12/14/20 21:17 Carbamide Peroxide (Debrox) 1 drop QMONTH AU 12/25/20 09:00 Cetirizine HCl (ZyrTEC) 10 mg DAILY PO 12/10/20 09:00 12/14/20 07:59 Metformin HCl (Glucophage) 500 mg BIDWMEALS PO 12/09/20 17:00 12/14/20 16:59 Olanzapine (ZyPREXA) 10 mg DAILY PO 12/10/20 09:00 12/14/20 07:58 Pantoprazole Sodium (Protonix) 40 mg DAILYAC PO 12/10/20 07:30 12/14/20 07:59 Hydrochlorothiazide (Microzide) 12.5 mg DAILY PO 12/10/20 09:00 12/11/20 11:11 DC 12/11/20 08:47 Losartan Potassium (Cozaar) 100 mg DAILY PO 12/10/20 09:00 12/14/20 07:58 Divalproex Sodium (Depakote Er) 500 mg QHS PO 12/09/20 21:00 12/14/20 21:17 Potassium Chloride (Klor-Con) 20 meq DAILYWBKFT PO 12/11/20 08:00 12/14/20 07:59 Mirtazapine (Remeron) 7.5 mg QHS PO 12/10/20 21:00 12/12/20 17:39 DC 12/11/20 21:15 Trazodone HCl (Desyrel) 50 mg PRN QHS PRN PO INSOMNIA MAY REPEAT X 1 12/11/20 15:45 12/13/20 18:13 DC 12/11/20 21:16 Mirtazapine (Remeron) 15 mg QHS PO 12/12/20 21:00 12/14/20 21:17 Trazodone HCl (Desyrel) 100 mg PRN QHS PRN PO INSOMNIA MAY REPEAT X 1 12/13/20 18:30 12/14/20 21:17 I have reviewed the current psychotropics carefully including drug interactions. Risk benefit ratio favors no change other than as noted in my dictated progress note. Diagnosis: Problems: (1) Impulse control disorder, unspecified (2) Mild cognitive impairment (3) Anxiety disorder, unspecified (4) Bipolar disorder, current episode mixed, severe, with psychotic features MARILOU COURTNEY MD December 14, 2020 22:42
[2020-12-15 06:17] VITALS: BP 144/78
--- NOTE | 2020-12-15 07:48 | PDOC ---
Exam Note: Blair Note: This note is a late entry for 12/13/2020 covers elements not covered in my initial note. Subjective: The patient was seen individually in the evening of 12/13/2020 with Deyanira WAGNER, discussed and reviewed the chart. The patient slept for 4-1/2 hours previous night. I met with him outside the second nursing station. He had poor eye contact, somewhat sleepy but interactive as I met with him. Review of Systems: He is legally blind. No CV, , pulmonary, ENT system symptoms on review. Mental Status Exam: The patient is oriented to himself. Insight, judgment, r ecent memory is impaired. Language function intact. Attention span short. No suicidal or homicidal ideation. Laboratory Data: Reviewed. Impression: Bipolar disorder mixed with psychotic features. Anxiety disorder unspecified. Impulse control disorder unspecified. Plan: Continue current psychotropics. The patient is currently on Remeron 15 mg p.o. h.s. He is still sleeping poorly. We will increase trazodone to 100 mg h.s. p.r.n., may repeat x1 for insomnia. Assessment: Vital Signs/I&O: Vital Signs Date Time Temp Pulse Resp B/P (MAP) Pulse Ox O2 Delivery O2 Flow Rate FiO2 12/15/20 06:17 98.0 77 18 144/78 (100) 96 12/12/20 06:16 Room Air I & O 12/14/20 12/14/20 12/15/20 15:00 23:00 07:00 Intake Total 600 ml 600 ml Balance 600 ml 600 ml Current Medications: Meds: Current Medications Medications (Trade) Dose Ordered Sig/Dionne Route PRN Reason Start Time Stop Time Status Last Admin Dose Admin Acetaminophen (Tylenol) 650 mg PRN Q6HRS PRN PO MILD PAIN / TEMP > 100.3'F 12/09/20 11:30 Multi-Ingredient Ointment (Analgesic [place]) 1 ayanna PRN QID PRN TP MUSCLE PAIN 12/09/20 11:30 Al Hydroxide/Mg Hydroxide (Mylanta Plus Xs) 15 ml PRN AFTMEALHC PRN PO DYSPEPSIA 12/09/20 11:30 Magnesium Hydroxide (Milk Of Magnesia) 2,400 mg PRN QHS PRN PO CONSTIPATION 12/09/20 11:30 Amlodipine Besylate (Norvasc) 5 mg DAILY PO 12/10/20 09:00 12/14/20 07:59 Atorvastatin Calcium (Lipitor) 20 mg QHS PO 12/09/20 21:00 12/14/20 21:17 Carbamide Peroxide (Debrox) 1 drop QMONTH AU 12/25/20 09:00 Cetirizine HCl (ZyrTEC) 10 mg DAILY PO 12/10/20 09:00 12/14/20 07:59 Metformin HCl (Glucophage) 500 mg BIDWMEALS PO 12/09/20 17:00 12/14/20 16:59 Olanzapine (ZyPREXA) 10 mg DAILY PO 12/10/20 09:00 12/14/20 07:58 Pantoprazole Sodium (Protonix) 40 mg DAILYAC PO 12/10/20 07:30 12/14/20 07:59 Hydrochlorothiazide (Microzide) 12.5 mg DAILY PO 12/10/20 09:00 12/11/20 11:11 DC 12/11/20 08:47 Losartan Potassium (Cozaar) 100 mg DAILY PO 12/10/20 09:00 12/14/20 07:58 Divalproex Sodium (Depakote Er) 500 mg QHS PO 12/09/20 21:00 12/14/20 21:17 Potassium Chloride (Klor-Con) 20 meq DAILYWBKFT PO 12/11/20 08:00 12/14/20 07:59 Mirtazapine (Remeron) 7.5 mg QHS PO 12/10/20 21:00 12/12/20 17:39 DC 12/11/20 21:15 Trazodone HCl (Desyrel) 50 mg PRN QHS PRN PO INSOMNIA MAY REPEAT X 1 12/11/20 15:45 12/13/20 18:13 DC 12/11/20 21:16 Mirtazapine (Remeron) 15 mg QHS PO 12/12/20 21:00 12/14/20 21:17 Trazodone HCl (Desyrel) 100 mg PRN QHS PRN PO INSOMNIA MAY REPEAT X 1 12/13/20 18:30 12/14/20 21:17 I have reviewed the current psychotropics carefully including drug interactions. Risk benefit ratio favors no change other than as noted in my dictated progress note. Diagnosis: Problems: (1) Impulse control disorder, unspecified (2) Mild cognitive impairment (3) Anxiety disorder, unspecified (4) Bipolar disorder, current episode mixed, severe, with psychotic features MARILOU COURTNEY MD December 15, 2020 07:48
[2020-12-15] MEDS: PANTOPRAZOLE 40 MG TABLET. PO SCH (08:18)
[2020-12-15] MEDS: LOSARTAN 50 MG TABLET. PO SCH (08:18)
[2020-12-15] MEDS: CETIRIZINE HCL 10 MG TABLET PO SCH (08:18)
[2020-12-15] MEDS: OLANZapine 10 MG TABLET PO SCH (08:18)
[2020-12-15] MEDS: amLODIPine BESYLATE 5 MG TABLET PO SCH (08:18)
[2020-12-15] MEDS: POTASSIUM CHLORIDE 10 MEQ TABLET.ER. PO SCH (08:19)
[2020-12-15] MEDS: metFORMIN 500 MG TABLET PO SCH ×2 (08:19→17:19)
[2020-12-15 16:10] VITALS: BP 131/90
[2020-12-15] MEDS: DIVALPROEX ER 500 MG TAB.ER.24H PO SCH (21:09)
[2020-12-15] MEDS: MIRTAZAPINE 7.5 MG TABLET. PO SCH (21:09)
[2020-12-15] MEDS: ATORVASTATIN CALCIUM 20 MG TABLET PO SCH (21:09)
--- NOTE | 2020-12-15 21:53 | PDOC ---
Exam Note: Blair Note: Please also refer to the separate dictated note~for this date of service dictated separately.~Patient seen individually. Discussed the patient with Nursing staff reviewed the chart.~Reviewed interim history and current functioning. Reviewed vital signs,~Labs/ Radiology~and current medications noted below. Continue current treatment with the changes noted in the dictated addendum note Assessment: Vital Signs/I&O: Vital Signs Date Time Temp Pulse Resp B/P (MAP) Pulse Ox O2 Delivery O2 Flow Rate FiO2 12/15/20 16:10 97.3 86 18 131/90 (104) 94 Room Air I & O 12/14/20 12/14/20 12/15/20 15:00 23:00 07:00 Intake Total 600 ml 600 ml Balance 600 ml 600 ml Current Medications: Meds: Current Medications Medications (Trade) Dose Ordered Sig/Dionne Route PRN Reason Start Time Stop Time Status Last Admin Dose Admin Acetaminophen (Tylenol) 650 mg PRN Q6HRS PRN PO MILD PAIN / TEMP > 100.3'F 12/09/20 11:30 Multi-Ingredient Ointment (Analgesic [place]) 1 ayanna PRN QID PRN TP MUSCLE PAIN 12/09/20 11:30 Al Hydroxide/Mg Hydroxide (Mylanta Plus Xs) 15 ml PRN AFTMEALHC PRN PO DYSPEPSIA 12/09/20 11:30 Magnesium Hydroxide (Milk Of Magnesia) 2,400 mg PRN QHS PRN PO CONSTIPATION 12/09/20 11:30 Amlodipine Besylate (Norvasc) 5 mg DAILY PO 12/10/20 09:00 12/15/20 08:18 Atorvastatin Calcium (Lipitor) 20 mg QHS PO 12/09/20 21:00 12/15/20 21:09 Carbamide Peroxide (Debrox) 1 drop QMONTH AU 12/25/20 09:00 Cetirizine HCl (ZyrTEC) 10 mg DAILY PO 12/10/20 09:00 12/15/20 08:18 Metformin HCl (Glucophage) 500 mg BIDWMEALS PO 12/09/20 17:00 12/15/20 17:19 Olanzapine (ZyPREXA) 10 mg DAILY PO 12/10/20 09:00 12/15/20 08:18 Pantoprazole Sodium (Protonix) 40 mg DAILYAC PO 12/10/20 07:30 5/5/21 08:18 Hydrochlorothiazide (Microzide) 12.5 mg DAILY PO 12/10/20 09:00 12/11/20 11:11 DC 12/11/20 08:47 Losartan Potassium (Cozaar) 100 mg DAILY PO 12/10/20 09:00 12/15/20 08:18 Divalproex Sodium (Depakote Er) 500 mg QHS PO 12/09/20 21:00 12/15/20 21:09 Potassium Chloride (Klor-Con) 20 meq DAILYWBKFT PO 12/11/20 08:00 12/15/20 08:19 Mirtazapine (Remeron) 7.5 mg QHS PO 12/10/20 21:00 12/12/20 17:39 DC 12/11/20 21:15 Trazodone HCl (Desyrel) 50 mg PRN QHS PRN PO INSOMNIA MAY REPEAT X 1 12/11/20 15:45 12/13/20 18:13 DC 12/11/20 21:16 Mirtazapine (Remeron) 15 mg QHS PO 12/12/20 21:00 12/15/20 21:09 Trazodone HCl (Desyrel) 100 mg PRN QHS PRN PO INSOMNIA MAY REPEAT X 1 12/13/20 18:30 12/14/20 21:17 I have reviewed the current psychotropics carefully including drug interactions. Risk benefit ratio favors no change other than as noted in my dictated progress note. Diagnosis: Problems: (1) Impulse control disorder, unspecified (2) Mild cognitive impairment (3) Anxiety disorder, unspecified (4) Bipolar disorder, current episode mixed, severe, with psychotic features MARILOU COURTNEY MD December 15, 2020 21:53
[2020-12-16 06:34] VITALS: BP 110/75
--- NOTE | 2020-12-16 06:59 | PDOC ---
Exam Note: Blair Note: This note is a late entry for 12/14/2020 covers elements not covered in my initial note. Subjective: The patient was seen individually in the evening of 12/14/2020 with Deyanira WAGNER, discussed and reviewed the chart. The patient slept for 3-3/4 hours previous night. He is less tired, spending more time in the dayroom. I met with him in his room at length. Review of Systems: He has bilateral blindness. No CV, , pulmonary, ENT system symptoms on review. Mental Status Exam: The patient is oriented to himself. Insight, judgment, recent memory is impaired. Language function intact. Attention span short. No suicidal or homicidal ideation. Laboratory Data: Reviewed. Impression: Bipolar disorder mixed with psychotic features. Anxiety disorder unspecified. Impulse control disorder unspecified. Plan: Continue current psychotropics. Assessment: Vital Signs/I&O: Vital Signs Date Time Temp Pulse Resp B/P (MAP) Pulse Ox O2 Delivery O2 Flow Rate FiO2 12/16/20 06:34 97.8 76 20 110/75 (87) 93 Room Air I & O 12/15/20 12/15/20 12/16/20 15:00 23:00 07:00 Intake Total 720 ml 200 ml Balance 720 ml 200 ml Current Medications: Meds: Current Medications Medications (Trade) Dose Ordered Sig/Dionne Route PRN Reason Start Time Stop Time Status Last Admin Dose Admin Acetaminophen (Tylenol) 650 mg PRN Q6HRS PRN PO MILD PAIN / TEMP > 100.3'F 12/09/20 11:30 Multi-Ingredient Ointment (Analgesic [place]) 1 ayanna PRN QID PRN TP MUSCLE PAIN 12/09/20 11:30 Al Hydroxide/Mg Hydroxide (Mylanta Plus Xs) 15 ml PRN AFTMEALHC PRN PO DYSPEPSIA 12/09/20 11:30 Magnesium Hydroxide (Milk Of Magnesia) 2,400 mg PRN QHS PRN PO CONSTIPATION 12/09/20 11:30 Amlodipine Besylate (Norvasc) 5 mg DAILY PO 12/10/20 09:00 12/15/20 08:18 Atorvastatin Calcium (Lipitor) 20 mg QHS PO 12/09/20 21:00 12/15/20 21:09 Carbamide Peroxide (Debrox) 1 drop QMONTH AU 12/25/20 09:00 Cetirizine HCl (ZyrTEC) 10 mg DAILY PO 12/10/20 09:00 12/15/20 08:18 Metformin HCl (Glucophage) 500 mg BIDWMEALS PO 12/09/20 17:00 12/15/20 17:19 Olanzapine (ZyPREXA) 10 mg DAILY PO 12/10/20 09:00 12/15/20 08:18 Pantoprazole Sodium (Protonix) 40 mg DAILYAC PO 12/10/20 07:30 12/15/20 08:18 Hydrochlorothiazide (Microzide) 12.5 mg DAILY PO 12/10/20 09:00 12/11/20 11:11 DC 12/11/20 08:47 Losartan Potassium (Cozaar) 100 mg DAILY PO 12/10/20 09:00 12/15/20 08:18 Divalproex Sodium (Depakote Er) 500 mg QHS PO 12/09/20 21:00 12/15/20 21:09 Potassium Chloride (Klor-Con) 20 meq DAILYWBKFT PO 12/11/20 08:00 12/15/20 08:19 Mirtazapine (Remeron) 7.5 mg QHS PO 12/10/20 21:00 12/12/20 17:39 DC 12/11/20 21:15 Trazodone HCl (Desyrel) 50 mg PRN QHS PRN PO INSOMNIA MAY REPEAT X 1 12/11/20 15:45 12/13/20 18:13 DC 12/11/20 21:16 Mirtazapine (Remeron) 15 mg QHS PO 12/12/20 21:00 12/15/20 21:09 Trazodone HCl (Desyrel) 100 mg PRN QHS PRN PO INSOMNIA MAY REPEAT X 1 12/13/20 18:30 12/14/20 21:17 I have reviewed the current psychotropics carefully including drug interactions. Risk benefit ratio favors no change other than as noted in my dictated progress note. Diagnosis: Problems: (1) Impulse control disorder, unspecified (2) Mild cognitive impairment (3) Anxiety disorder, unspecified (4) Bipolar disorder, current episode mixed, severe, with psychotic features MARILOU COURTNEY MD December 16, 2020 06:59
--- NOTE | 2020-12-16 07:36 | PDOC ---
Exam Note: Blair Note: This note is a late entry for 12/15/2020 covers elements not covered in my initial note. Subjective: The patient was seen individually in the evening of 12/15/2020 with Robyn WAGNER, discussed and reviewed the chart. The patient slept for 7 hours previous night. He has been doing reasonably well. Review of Systems: He has bilateral blindness. No CV, , pulmonary, ENT system symptoms on review. Mental Status Exam: The patient is oriented to himself. Insight, judgment, recent memory is impaired. Language function intact. Attention span short. No suicidal or homicidal ideation. Laboratory Data: Reviewed. Impression: Bipolar disorder mixed with psychotic features. Anxiety disorder unspecified. Impulse control disorder unspecified. Plan: Continue current psychotropics. Valproic acid level is therapeutic at 54. Assessment: Vital Signs/I&O: Vital Signs Date Time Temp Pulse Resp B/P (MAP) Pulse Ox O2 Delivery O2 Flow Rate FiO2 12/16/20 06:34 97.8 76 20 110/75 (87) 93 Room Air I & O 12/15/20 12/15/20 12/16/20 15:00 23:00 07:00 Intake Total 720 ml 200 ml Balance 720 ml 200 ml Current Medications: Meds: Current Medications Medications (Trade) Dose Ordered Sig/Dionne Route PRN Reason Start Time Stop Time Status Last Admin Dose Admin Acetaminophen (Tylenol) 650 mg PRN Q6HRS PRN PO MILD PAIN / TEMP > 100.3'F 12/09/20 11:30 Multi-Ingredient Ointment (Analgesic [place]) 1 ayanna PRN QID PRN TP MUSCLE PAIN 12/09/20 11:30 Al Hydroxide/Mg Hydroxide (Mylanta Plus Xs) 15 ml PRN AFTMEALHC PRN PO DYSPEPSIA 12/09/20 11:30 Magnesium Hydroxide (Milk Of Magnesia) 2,400 mg PRN QHS PRN PO CONSTIPATION 12/09/20 11:30 Amlodipine Besylate (Norvasc) 5 mg DAILY PO 12/10/20 09:00 12/15/20 08:18 Atorvastatin Calcium (Lipitor) 20 mg QHS PO 12/09/20 21:00 12/15/20 21:09 Carbamide Peroxide (Debrox) 1 drop QMONTH AU 12/25/20 09:00 Cetirizine HCl (ZyrTEC) 10 mg DAILY PO 12/10/20 09:00 12/15/20 08:18 Metformin HCl (Glucophage) 500 mg BIDWMEALS PO 12/09/20 17:00 12/15/20 17:19 Olanzapine (ZyPREXA) 10 mg DAILY PO 12/10/20 09:00 12/15/20 08:18 Pantoprazole Sodium (Protonix) 40 mg DAILYAC PO 12/10/20 07:30 12/15/20 08:18 Hydrochlorothiazide (Microzide) 12.5 mg DAILY PO 12/10/20 09:00 12/11/20 11:11 DC 12/11/20 08:47 Losartan Potassium (Cozaar) 100 mg DAILY PO 12/10/20 09:00 12/15/20 08:18 Divalproex Sodium (Depakote Er) 500 mg QHS PO 12/09/20 21:00 12/15/20 21:09 Potassium Chloride (Klor-Con) 20 meq DAILYWBKFT PO 12/11/20 08:00 12/15/20 08:19 Mirtazapine (Remeron) 7.5 mg QHS PO 12/10/20 21:00 12/12/20 17:39 DC 12/11/20 21:15 Trazodone HCl (Desyrel) 50 mg PRN QHS PRN PO INSOMNIA MAY REPEAT X 1 12/11/20 15:45 12/13/20 18:13 DC 12/11/20 21:16 Mirtazapine (Remeron) 15 mg QHS PO 12/12/20 21:00 12/15/20 21:09 Trazodone HCl (Desyrel) 100 mg PRN QHS PRN PO INSOMNIA MAY REPEAT X 1 12/13/20 18:30 12/14/20 21:17 I have reviewed the current psychotropics carefully including drug interactions. Risk benefit ratio favors no change other than as noted in my dictated progress note. Diagnosis: Problems: (1) Impulse control disorder, unspecified (2) Mild cognitive impairment (3) Anxiety disorder, unspecified (4) Bipolar disorder, current episode mixed, severe, with psychotic features MARILOU COURTNEY MD December 16, 2020 07:36
[2020-12-16] MEDS: PANTOPRAZOLE 40 MG TABLET. PO SCH (08:08)
[2020-12-16] MEDS: OLANZapine 10 MG TABLET PO SCH (08:08)
[2020-12-16] MEDS: metFORMIN 500 MG TABLET PO SCH ×2 (08:08→16:58)
[2020-12-16] MEDS: CETIRIZINE HCL 10 MG TABLET PO SCH (08:08)
[2020-12-16] MEDS: POTASSIUM CHLORIDE 10 MEQ TABLET.ER. PO SCH (08:08)
[2020-12-16] MEDS: LOSARTAN 50 MG TABLET. PO SCH (08:08)
[2020-12-16] MEDS: amLODIPine BESYLATE 5 MG TABLET PO SCH (08:09)
--- NOTE | 2020-12-16 12:08 | TX PLAN ---
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 Diagnoses Primary Diagnosis: Bipolar D/O with acute exacerbation Reasons for Admission: Agitated, Sig. Change Sleep, Confusion/Disoriented, Poor impulse control, Other Problem in Patient's Words: According to the intake pt is confused, destroyed his room, agitated, not sleeping for the last 3 nights Problems Active Problems: confused poor sleep Inactive Problems: Medication compliant Pt Strengths/Limitations Ability for [place]: Poor Cognitive Functioning/Ability: Fair Communication Skills/Ability: Fair Financial Resources: Fair Insight/Judgement: Poor Intellectual Ability: Fair Physical Health: Fair Social Skills: Fair Stability in Family: Fair Stability in School/Work: Poor Verbal Skills: Fair Discharge Criteria Discharge Criteria: No need for close observ., Adequate arrangements @DC, Improved behavior, Improved mood/thought Preliminary Discharge Plan Preliminary DC Plan: Current Living Arrange. Special Precautions Fall Risk: Moderate Initial D/C Plan Pt will plan to return to [facility] once stable. Identified Discharge Needs: Psychiatric follow-up Identified Problems/Hx/Goals Objectives/Short-Term Goals Short Term Goals: Dec. Aggression, Dec. Outbursts, Medication Stabilization, Promote Coping Skill Short Term Goals in Patient's: NA Interventions/Frequency Staff Interventions/Frequency&: Psychiatrist to assess pt at least 3x per week for medication mgmt. Social Work to assess pt at least 2x per week to identify barriers to care and finalize discharge plans. Nursing to assess medication effects, behavior modification and completion of 15 minute checks daily. Encourage participation in group activities (if applicable) or 1:1 engagement based of activity dept goals. 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 Education: Pulled out of the [employer] per parents request; but does know how to read and write. Community Follow-up Primary Care Physician Treatment Plan Explained Patient/Patient Support Tech had this treatment plan explained to him/her as indicated by the signature below and has been given the opportunity to ask questions and make suggestions: Date: Patient/Patient Support Tech Signature: Patient/Patient Support Tech Decline: No (Pt sister is active in pt care) Status Update Update Please note that this is pt second Interdisciplinary Treatment Team, as pt first team was last week on 12/10. Pt is eating 100% of meals and sleeping on average 5 hours per night. Pt is medication compliant and is often found in the wrong bed but is redirectable. Pt was incontinent of bowel in his room, but appears to be doing better overall. Pt has been more outgoing and was noted to be singing in the dining room this morning. Pt has attended 4 groups within the last week with moderate to maximum participation and is able to follow directions. Pt at this time is to discharge back to [facility] once stable; [facility] is scheduled for next week. ANKITA LIU December 16, 2020 12:08
[2020-12-16 15:47] VITALS: BP 133/80
[2020-12-16] MEDS: DIVALPROEX ER 500 MG TAB.ER.24H PO SCH (20:58)
[2020-12-16] MEDS: ATORVASTATIN CALCIUM 20 MG TABLET PO SCH (20:58)
[2020-12-16] MEDS: MIRTAZAPINE 7.5 MG TABLET. PO SCH (20:59)
[2020-12-17 05:56] VITALS: BP 148/85
--- NOTE | 2020-12-17 07:49 | PDOC ---
Exam Note: Blair Note: This note is a late entry for 12/16/2020 covers elements not covered in my initial note. Subjective: The patient was reviewed in the morning of 12/16/2020 for a treatment team meeting with Natasha oYung, Ita Samuels and Martina (manager social media), Iliana, activity therapy and Robyn WAGNER, discussed and reviewed the chart. The patient slept for 5-1/4 hours previous night. He has been singing at breakfast, some commercial jingles. He gets confused. He got into wrong bed. He has had some loose bowel movements. He attended 4 group activities this week. Discussed with Timur WAGNER in the evening and met with him in the dayroom. Review of Systems: He has bilateral blindness. No CV, , pulmonary, ENT system symptoms on review. Mental Status Exam: The patient is oriented to himself. He was seated in the dayroom head bent forward. He is verbally interactive. Insight, judgment, recent memory is impaired. Language function intact. Attention span short. No suicidal or homicidal ideation. Laboratory Data: Reviewed. Impression: Bipolar disorder mixed with psychotic features. Anxiety disorder unspecified. Impulse control disorder unspecified. Plan: Continue current psychotropics. Assessment: Vital Signs/I&O: Vital Signs Date Time Temp Pulse Resp B/P (MAP) Pulse Ox O2 Delivery O2 Flow Rate FiO2 12/17/20 05:56 97.3 79 20 148/85 (106) 96 12/16/20 15:47 Room Air I & O 12/16/20 12/16/20 12/17/20 14:59 22:59 06:59 Intake Total 600 ml 480 ml Balance 600 ml 480 ml Current Medications: Meds: Current Medications Medications (Trade) Dose Ordered Sig/Dionne Route PRN Reason Start Time Stop Time Status Last Admin Dose Admin Acetaminophen (Tylenol) 650 mg PRN Q6HRS PRN PO MILD PAIN / TEMP > 100.3'F 12/09/20 11:30 Multi-Ingredient Ointment (Analgesic [place]) 1 ayanna PRN QID PRN TP MUSCLE PAIN 12/09/20 11:30 Al Hydroxide/Mg Hydroxide (Mylanta Plus Xs) 15 ml PRN AFTMEALHC PRN PO DYSPEPSIA 12/09/20 11:30 Magnesium Hydroxide (Milk Of Magnesia) 2,400 mg PRN QHS PRN PO CONSTIPATION 12/09/20 11:30 Amlodipine Besylate (Norvasc) 5 mg DAILY PO 12/10/20 09:00 12/16/20 08:09 Atorvastatin Calcium (Lipitor) 20 mg QHS PO 12/09/20 21:00 12/16/20 20:58 Carbamide Peroxide (Debrox) 1 drop QMONTH AU 12/25/20 09:00 Cetirizine HCl (ZyrTEC) 10 mg DAILY PO 12/10/20 09:00 12/16/20 08:08 Metformin HCl (Glucophage) 500 mg BIDWMEALS PO 12/09/20 17:00 12/16/20 16:58 Olanzapine (ZyPREXA) 10 mg DAILY PO 12/10/20 09:00 12/16/20 08:08 Pantoprazole Sodium (Protonix) 40 mg DAILYAC PO 12/10/20 07:30 12/16/20 08:08 Hydrochlorothiazide (Microzide) 12.5 mg DAILY PO 12/10/20 09:00 12/11/20 11:11 DC 12/11/20 08:47 Losartan Potassium (Cozaar) 100 mg DAILY PO 12/10/20 09:00 12/16/20 08:08 Divalproex Sodium (Depakote Er) 500 mg QHS PO 12/09/20 21:00 12/16/20 20:58 Potassium Chloride (Klor-Con) 20 meq DAILYWBKFT PO 12/11/20 08:00 12/16/20 08:08 Mirtazapine (Remeron) 7.5 mg QHS PO 12/10/20 21:00 12/12/20 17:39 DC 12/11/20 21:15 Trazodone HCl (Desyrel) 50 mg PRN QHS PRN PO INSOMNIA MAY REPEAT X 1 12/11/20 15:45 12/13/20 18:13 DC 12/11/20 21:16 Mirtazapine (Remeron) 15 mg QHS PO 12/12/20 21:00 12/16/20 20:59 Trazodone HCl (Desyrel) 100 mg PRN QHS PRN PO INSOMNIA MAY REPEAT X 1 12/13/20 18:30 12/14/20 21:17 I have reviewed the current psychotropics carefully including drug interactions. Risk benefit ratio favors no change other than as noted in my dictated progress note. Diagnosis: Problems: (1) Impulse control disorder, unspecified (2) Mild cognitive impairment (3) Anxiety disorder, unspecified (4) Bipolar disorder, current episode mixed, severe, with psychotic features MARILOU COURTNEY MD December 17, 2020 07:49
[2020-12-17] MEDS: metFORMIN 500 MG TABLET PO SCH ×2 (08:46→17:17)
[2020-12-17] MEDS: LOSARTAN 50 MG TABLET. PO SCH (08:46)
[2020-12-17] MEDS: amLODIPine BESYLATE 5 MG TABLET PO SCH (08:46)
[2020-12-17] MEDS: PANTOPRAZOLE 40 MG TABLET. PO SCH (08:46)
[2020-12-17] MEDS: POTASSIUM CHLORIDE 10 MEQ TABLET.ER. PO SCH (08:47)
[2020-12-17] MEDS: CETIRIZINE HCL 10 MG TABLET PO SCH (08:47)
[2020-12-17] MEDS: OLANZapine 10 MG TABLET PO SCH (08:47)
[2020-12-17 15:52] VITALS: BP 105/63
[2020-12-17] MEDS: DIVALPROEX ER 500 MG TAB.ER.24H PO SCH (20:32)
[2020-12-17] MEDS: MIRTAZAPINE 7.5 MG TABLET. PO SCH (20:32)
[2020-12-17] MEDS: ATORVASTATIN CALCIUM 20 MG TABLET PO SCH (20:32)
--- NOTE | 2020-12-17 21:49 | PDOC ---
Exam Note: Blair Note: Please also refer to the separate dictated note~for this date of service dictated separately.~Patient seen individually. Discussed the patient with Nursing staff reviewed the chart.~Reviewed interim history and current functioning. Reviewed vital signs,~Labs/ Radiology~and current medications noted below. Continue current treatment with the changes noted in the dictated addendum note Assessment: Vital Signs/I&O: Vital Signs Date Time Temp Pulse Resp B/P (MAP) Pulse Ox O2 Delivery O2 Flow Rate FiO2 12/17/20 15:52 97.1 74 18 105/63 (77) 95 12/16/20 15:47 Room Air I & O 12/16/20 12/16/20 12/17/20 15:00 23:00 07:00 Intake Total 600 ml 480 ml Balance 600 ml 480 ml Current Medications: Meds: Current Medications Medications (Trade) Dose Ordered Sig/Dionne Route PRN Reason Start Time Stop Time Status Last Admin Dose Admin Acetaminophen (Tylenol) 650 mg PRN Q6HRS PRN PO MILD PAIN / TEMP > 100.3'F 12/09/20 11:30 Multi-Ingredient Ointment (Analgesic [place]) 1 ayanna PRN QID PRN TP MUSCLE PAIN 12/09/20 11:30 Al Hydroxide/Mg Hydroxide (Mylanta Plus Xs) 15 ml PRN AFTMEALHC PRN PO DYSPEPSIA 12/09/20 11:30 Magnesium Hydroxide (Milk Of Magnesia) 2,400 mg PRN QHS PRN PO CONSTIPATION 12/09/20 11:30 Amlodipine Besylate (Norvasc) 5 mg DAILY PO 12/10/20 09:00 12/17/20 08:46 Atorvastatin Calcium (Lipitor) 20 mg QHS PO 12/09/20 21:00 12/17/20 20:32 Carbamide Peroxide (Debrox) 1 drop QMONTH AU 12/25/20 09:00 Cetirizine HCl (ZyrTEC) 10 mg DAILY PO 12/10/20 09:00 12/17/20 08:47 Metformin HCl (Glucophage) 500 mg BIDWMEALS PO 12/09/20 17:00 12/17/20 17:17 Olanzapine (ZyPREXA) 10 mg DAILY PO 12/10/20 09:00 12/17/20 08:47 Pantoprazole Sodium (Protonix) 40 mg DAILYAC PO 12/10/20 07:30 12/17/20 08:46 Hydrochlorothiazide (Microzide) 12.5 mg DAILY PO 12/10/20 09:00 12/11/20 11:11 DC 12/11/20 08:47 Losartan Potassium (Cozaar) 100 mg DAILY PO 12/10/20 09:00 12/17/20 08:46 Divalproex Sodium (Depakote Er) 500 mg QHS PO 12/09/20 21:00 12/17/20 20:32 Potassium Chloride (Klor-Con) 20 meq DAILYWBKFT PO 12/11/20 08:00 12/17/20 08:47 Mirtazapine (Remeron) 7.5 mg QHS PO 12/10/20 21:00 12/12/20 17:39 DC 12/11/20 21:15 Trazodone HCl (Desyrel) 50 mg PRN QHS PRN PO INSOMNIA MAY REPEAT X 1 12/11/20 15:45 12/13/20 18:13 DC 12/11/20 21:16 Mirtazapine (Remeron) 15 mg QHS PO 12/12/20 21:00 12/17/20 20:32 Trazodone HCl (Desyrel) 100 mg PRN QHS PRN PO INSOMNIA MAY REPEAT X 1 12/13/20 18:30 12/14/20 21:17 I have reviewed the current psychotropics carefully including drug interactions. Risk benefit ratio favors no change other than as noted in my dictated progress note. Diagnosis: Problems: (1) Impulse control disorder, unspecified (2) Mild cognitive impairment (3) Anxiety disorder, unspecified (4) Bipolar disorder, current episode mixed, severe, with psychotic features MARILOU COURTNEY MD December 17, 2020 21:49
[2020-12-18 05:58] VITALS: BP 129/76
[2020-12-18] MEDS: CETIRIZINE HCL 10 MG TABLET PO SCH (08:33)
[2020-12-18] MEDS: PANTOPRAZOLE 40 MG TABLET. PO SCH (08:33)
[2020-12-18] MEDS: amLODIPine BESYLATE 5 MG TABLET PO SCH (08:34)
[2020-12-18] MEDS: metFORMIN 500 MG TABLET PO SCH ×2 (08:34→17:18)
[2020-12-18] MEDS: POTASSIUM CHLORIDE 10 MEQ TABLET.ER. PO SCH (08:34)
[2020-12-18] MEDS: LOSARTAN 50 MG TABLET. PO SCH (08:34)
[2020-12-18] MEDS: OLANZapine 10 MG TABLET PO SCH (08:34)
[2020-12-18 16:03] VITALS: BP 105/64
[2020-12-18] MEDS: DIVALPROEX ER 500 MG TAB.ER.24H PO SCH (20:22)
[2020-12-18] MEDS: ATORVASTATIN CALCIUM 20 MG TABLET PO SCH (20:22)
[2020-12-18] MEDS: MIRTAZAPINE 7.5 MG TABLET. PO SCH (20:22)
--- NOTE | 2020-12-18 23:57 | PN ---
DATE: 12/18/2020 SUBJECTIVE: The patient was seen today and met with the staff. Chart was reviewed and also covering for Dr. Pizarro. Staff reports no major physical problems. No recent falls. He is legally blind, stays in bed most of the time, increased confusion, decreased ADLs, unsteady on his feet. He is a fall risk. PHYSICAL EXAMINATION: VITAL SIGNS: Temperature 97.9, blood pressure 129/76, pulse 74, respirations 16, O2 sat 93%. Slept about 9 hours last night. CURRENT MEDICATIONS: Include trazodone 100 mg at night p.r.n. for sleep, mirtazapine 15 mg at night, olanzapine 10 mg daily, Depakote 500 mg at night. The patient is not having any side effects. LABORATORY DATA: The patient's lab reviewed. The patient's Depakote level was 54. ASSESSMENT: 1. Bipolar disorder, mixed with psychotic features. 2. Anxiety disorder, unspecified. PLAN: To continue with the treatment. LENGTH OF STAY: Seven to ten days. TRAY DR: Adarsh TID: [id number] MTDD
[2020-12-19 06:08] VITALS: BP 132/83
[2020-12-19 07:51] LABS: BASO # 0.1 x10^3/uL (0.0-0.2); BASO % 1 % (0-3); EOS # 0.3 x10^3/uL (0.0-0.7); EOS % 5 % (0-3); HEMATOCRIT 42.4 % (39.0-53.0); HEMOGLOBIN 14.3 g/dL (13.0-17.5); LYMPH # 1.2 x10^3/uL (1.0-4.8); LYMPH % 19 % (24-48); MEAN CORPUSCULAR HEMOGLOBIN 33 pg (25-35); MEAN CORPUSCULAR HGB CONC 34 g/dL (31-37); MEAN CORPUSCULAR VOLUME 96 fL (79-100); MONO # 0.7 x10^3/uL (0.0-1.1); MONO % 12 % (0-9); NEUT # 4.1 x10^3uL (1.8-7.7); NEUT % 64 % (31-73); PLATELET COUNT 248 x10^3/uL (140-400); RED CELL DISTRIBUTION WIDTH 13.8 % (11.5-14.5); WHITE BLOOD COUNT 6.4 x10^3/uL (4.0-11.0)
[2020-12-19 08:11] LABS: ALBUMIN 3.5 g/dL (3.4-5.0); CALCIUM 9.1 mg/dL (8.5-10.1); CREATININE 0.9 mg/dL (0.7-1.3); GFR 84.2; TOTAL BILIRUBIN 0.5 mg/dL (0.2-1.0); TOTAL PROTEIN 7.1 g/dL (6.4-8.2)
[2020-12-19] MEDS: LOSARTAN 50 MG TABLET. PO SCH (08:16)
[2020-12-19] MEDS: PANTOPRAZOLE 40 MG TABLET. PO SCH (08:16)
[2020-12-19] MEDS: OLANZapine 10 MG TABLET PO SCH (08:17)
[2020-12-19] MEDS: POTASSIUM CHLORIDE 10 MEQ TABLET.ER. PO SCH (08:17)
[2020-12-19] MEDS: metFORMIN 500 MG TABLET PO SCH ×2 (08:17→17:12)
[2020-12-19] MEDS: amLODIPine BESYLATE 5 MG TABLET PO SCH (08:17)
[2020-12-19] MEDS: CETIRIZINE HCL 10 MG TABLET PO SCH (08:17)
[2020-12-19 16:15] VITALS: BP 104/68
[2020-12-19] MEDS: DIVALPROEX ER 500 MG TAB.ER.24H PO SCH (19:50)
[2020-12-19] MEDS: ATORVASTATIN CALCIUM 20 MG TABLET PO SCH (19:50)
[2020-12-19] MEDS: MIRTAZAPINE 7.5 MG TABLET. PO SCH (19:51)
--- NOTE | 2020-12-20 05:51 | PN ---
DATE: 12/19/2020 SUBJECTIVE: The patient was seen today, met with the staff. Chart was reviewed and also covering for Dr. Pizarro. Staff reports that he is medication compliant and not presented with any major behavior problems. The patient is blind. Also has periods of confusion. OBSERVATION: VITAL SIGNS: Temperature 97.3, blood pressure 132/83, pulse 82, respirations 18, O2 sat 95%. Slept about 8 hours last night. The patient's appetite improved. CURRENT MEDICATIONS: Include trazodone 100 mg at night p.r.n. for sleep, mirtazapine 15 mg at night, olanzapine 10 mg daily, Depakote 500 mg at night. The patient is not having any major side effects to medications. Patient's labs reviewed. ASSESSMENT: 1. Bipolar disorder, mixed with psychotic features. 2. Anxiety disorder, unspecified. PLAN: Continue with the treatment. LENGTH OF STAY: Seven to ten days. LIZZY/SURESH/SD DR: Adarsh TID: [id number] MTDD
[2020-12-20 06:30] VITALS: BP 149/96
[2020-12-20] MEDS: metFORMIN 500 MG TABLET PO SCH ×2 (07:54→17:10)
[2020-12-20] MEDS: CETIRIZINE HCL 10 MG TABLET PO SCH (07:54)
[2020-12-20] MEDS: OLANZapine 10 MG TABLET PO SCH (07:54)
[2020-12-20] MEDS: amLODIPine BESYLATE 5 MG TABLET PO SCH (07:54)
[2020-12-20] MEDS: PANTOPRAZOLE 40 MG TABLET. PO SCH (07:54)
[2020-12-20] MEDS: LOSARTAN 50 MG TABLET. PO SCH (07:55)
[2020-12-20] MEDS: POTASSIUM CHLORIDE 10 MEQ TABLET.ER. PO SCH (07:55)
[2020-12-20 16:06] VITALS: BP 119/75
[2020-12-20] MEDS: MIRTAZAPINE 7.5 MG TABLET. PO SCH (20:10)
[2020-12-20] MEDS: ATORVASTATIN CALCIUM 20 MG TABLET PO SCH (20:10)
[2020-12-20] MEDS: DIVALPROEX ER 500 MG TAB.ER.24H PO SCH (20:11)
[2020-12-21 06:12] VITALS: BP 126/84
[2020-12-21] MEDS: OLANZapine 10 MG TABLET PO SCH (08:10)
[2020-12-21] MEDS: LOSARTAN 50 MG TABLET. PO SCH (08:10)
[2020-12-21] MEDS: amLODIPine BESYLATE 5 MG TABLET PO SCH (08:10)
[2020-12-21] MEDS: metFORMIN 500 MG TABLET PO SCH ×2 (08:10→17:01)
[2020-12-21] MEDS: PANTOPRAZOLE 40 MG TABLET. PO SCH (08:10)
[2020-12-21] MEDS: CETIRIZINE HCL 10 MG TABLET PO SCH (08:10)
[2020-12-21] MEDS: POTASSIUM CHLORIDE 10 MEQ TABLET.ER. PO SCH (08:10)
--- NOTE | 2020-12-21 09:46 | PN ---
DATE: 12/20/2020 DATE OF SERVICE: 12/20/2020. SUBJECTIVE: The patient was seen today, met with the staff and chart reviewed. Staff reports no major behavior problems, is compliant with medications and assessments. The patient gets along with the staff and other residents. OBSERVATION: VITAL SIGNS: Temperature 97.7, blood pressure 149/96, pulse 78, respirations 20, O2 sat 95%. Slept about 8 hours last night. The patient's appetite improved. CURRENT MEDICATIONS: Include Trazodone 100 mg at night p.r.n. for sleep, mirtazapine 15 mg at night, olanzapine 10 mg daily and Depakote 500 mg at night. The patient is not exhibiting any side effects to medications. LABORATORY DATA: The patient's lab reviewed. ASSESSMENT: 1. Bipolar disorder, mixed with psychotic features. 2. Anxiety disorder, unspecified. PLAN: To continue with the treatment. LENGTH OF STAY: Seven days. LIZZY/PETERSON/SABI DR: Adarsh TID: [id number] MTDD
[2020-12-21 16:25] VITALS: BP 103/71
[2020-12-21] MEDS: ATORVASTATIN CALCIUM 20 MG TABLET PO SCH (21:27)
[2020-12-21] MEDS: DIVALPROEX ER 500 MG TAB.ER.24H PO SCH (21:27)
[2020-12-21] MEDS: MIRTAZAPINE 7.5 MG TABLET. PO SCH (21:27)
[2020-12-22 06:03] VITALS: BP 117/78
[2020-12-22] MEDS: PANTOPRAZOLE 40 MG TABLET. PO SCH (08:38)
[2020-12-22] MEDS: amLODIPine BESYLATE 5 MG TABLET PO SCH (08:38)
[2020-12-22] MEDS: CETIRIZINE HCL 10 MG TABLET PO SCH (08:38)
[2020-12-22] MEDS: OLANZapine 10 MG TABLET PO SCH (08:38)
[2020-12-22] MEDS: LOSARTAN 50 MG TABLET. PO SCH (08:38)
[2020-12-22] MEDS: metFORMIN 500 MG TABLET PO SCH ×2 (08:39→17:24)
[2020-12-22] MEDS: POTASSIUM CHLORIDE 10 MEQ TABLET.ER. PO SCH (08:39)
--- NOTE | 2020-12-22 09:39 | PN ---
DATE: 12/21/2020 SUBJECTIVE: The patient was seen today, met with the staff, chart reviewed, also covering for Dr. Pizarro. Patient apparently is not presenting with any major behavior problems. He is compliant with medications and assessments. OBSERVATION: VITAL SIGNS: Temperature 97.9, blood pressure 103/71, pulse 80, respirations 16, and O2 sat 95%. GENERAL: The patient is sleeping fairly well. The patient is not having any physical complaints. CURRENT MEDICATIONS: Mirtazapine 15 mg at night, olanzapine 10 mg daily, Depakote 500 mg at night, and trazodone 100 mg at night p.r.n. for sleep. The patient is not having any side effects to medications. Patient's lab reviewed. ASSESSMENT: 1. Bipolar disorder, mixed with psychotic features. 2. Anxiety disorder, unspecified. PLAN: To continue with the treatment. LENGTH OF STAY: Seven days. PUNEET DR: Adarsh TID: [id number]
[2020-12-22 16:30] VITALS: BP 98/57
[2020-12-22] MEDS: MIRTAZAPINE 7.5 MG TABLET. PO SCH (21:02)
[2020-12-22] MEDS: ATORVASTATIN CALCIUM 20 MG TABLET PO SCH (21:02)
[2020-12-22] MEDS: DIVALPROEX ER 500 MG TAB.ER.24H PO SCH (21:02)
--- NOTE | 2020-12-23 01:41 | PN ---
DATE: 12/22/2020 SUBJECTIVE: The patient was seen today, met with the staff, chart reviewed. Staff reports no major behavioral problems, is compliant with medications and relates well to staff. OBSERVATION: VITAL SIGNS: Temperature 97.3, blood pressure 117/78, pulse 80, respirations 18, O2 sat 96%. Slept about 6 hours last night. The patient is not having any physical complaints. LABORATORY DATA: The patient's lab reviewed. MEDICATIONS: The patient's current medications include mirtazapine 15 mg at night, olanzapine 10 mg daily, Depakote 500 mg at night, and trazodone 100 mg at night p.r.n. for sleep. ASSESSMENT: 1. Bipolar disorder, mixed with psychotic features. 2. Anxiety disorder, unspecified. PLAN: To continue with treatment. LENGTH OF STAY: Seven days. ELLE DR: Adarsh TID: [id number]
[2020-12-23 05:28] VITALS: BP 157/88
[2020-12-23] MEDS: amLODIPine BESYLATE 5 MG TABLET PO SCH (08:41)
[2020-12-23] MEDS: OLANZapine 10 MG TABLET PO SCH (08:41)
[2020-12-23] MEDS: CETIRIZINE HCL 10 MG TABLET PO SCH (08:41)
[2020-12-23] MEDS: POTASSIUM CHLORIDE 10 MEQ TABLET.ER. PO SCH (08:42)
[2020-12-23] MEDS: metFORMIN 500 MG TABLET PO SCH ×2 (08:42→17:00)
[2020-12-23] MEDS: LOSARTAN 50 MG TABLET. PO SCH (08:42)
[2020-12-23] MEDS: PANTOPRAZOLE 40 MG TABLET. PO SCH (08:42)
[2020-12-23 16:13] VITALS: BP 143/83
--- NOTE | 2020-12-23 16:46 | TX PLAN ---
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 Diagnoses Primary Diagnosis: Bipolar D/O with acute exacerbation Reasons for Admission: Agitated, Sig. Change Sleep, Confusion/Disoriented, Poor impulse control, Other Problem in Patient's Words: According to the intake pt is confused, destroyed his room, agitated, not sleeping for the last 3 nights Problems Active Problems: confused poor sleep Inactive Problems: Medication compliant Pt Strengths/Limitations Ability for [place]: Poor Cognitive Functioning/Ability: Fair Communication Skills/Ability: Fair Financial Resources: Fair Insight/Judgement: Poor Intellectual Ability: Fair Physical Health: Fair Social Skills: Fair Stability in Family: Fair Stability in School/Work: Poor Verbal Skills: Fair Discharge Criteria Discharge Criteria: No need for close observ., Adequate arrangements @DC, Improved behavior, Improved mood/thought Preliminary Discharge Plan Preliminary DC Plan: Current Living Arrange. Special Precautions Fall Risk: Moderate Initial D/C Plan Pt will plan to return to [facility] once stable. Identified Discharge Needs: Psychiatric follow-up Identified Problems/Hx/Goals Objectives/Short-Term Goals Short Term Goals: Dec. Aggression, Dec. Outbursts, Medication Stabilization, Promote Coping Skill Short Term Goals in Patient's: NA Interventions/Frequency Staff Interventions/Frequency&: Psychiatrist to assess pt at least 3x per week for medication mgmt. Social Work to assess pt at least 2x per week to identify barriers to care and finalize discharge plans. Nursing to assess medication effects, behavior modification and completion of 15 minute checks daily. Encourage participation in group activities (if applicable) or 1:1 engagement based of activity dept goals. 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 Education: Pulled out of the [employer] per parents request; but does know how to read and write. Community Follow-up Primary Care Physician Treatment Plan Explained Patient/Nurse Gynecology had this treatment plan explained to him/her as indicated by the signature below and has been given the opportunity to ask questions and make suggestions: Date: Patient/Nurse Gynecology Signature: Status Update Update Pt is eating roughly 100% of meals and sleeping on average 5 hours per night. Pt is complaint with all cares, staff directions and medications. Pt is alert and oriented x 4 and does at times have a poor tolerance for those who are not as functioning as he. Pt does well in groups, participating in at least seven last week with full to moderate participation. At this time, pt is scheduled to discharge tomorrow; SW will make all final arrangements with the facility and pt sister. ANKITA LIU December 23, 2020 16:46
[2020-12-23] MEDS: MIRTAZAPINE 7.5 MG TABLET. PO SCH (20:51)
[2020-12-23] MEDS: ATORVASTATIN CALCIUM 20 MG TABLET PO SCH (20:51)
[2020-12-23] MEDS: DIVALPROEX ER 500 MG TAB.ER.24H PO SCH (20:51)
[2020-12-24] MEDS ORDERED: MIRT15TA90 PO (02:54)
[2020-12-24] MEDS ORDERED: DIVA500T4 PO (02:54)
[2020-12-24] MEDS ORDERED: TRAZ-125 PO (02:56)
[2020-12-24] MEDS ORDERED: POTA20TA4 PO (03:00)
--- NOTE | 2020-12-24 03:55 | PN ---
DATE: 12/23/2020 SUBJECTIVE: The patient was seen today, met with the staff. Chart reviewed and also participated in the treatment review meeting. The patient is not having any major behavior problems. OBSERVATION: VITAL SIGNS: Temperature 98.4, blood pressure 157/88, pulse 74, respirations 20, O2 sat 95%. Slept about 7 hours last night. Patient's appetite fair. The patient is not having any physical complaints. Patient's lab reviewed. MEDICATIONS: Patient's current medications include mirtazapine 15 mg at night, olanzapine 10 mg daily, Depakote 500 mg at night and trazodone 100 mg at night p.r.n. for sleep. ASSESSMENT: 1. Bipolar disorder, mixed with psychotic features. 2. Anxiety disorder, unspecified. PLAN: To continue with treatment. LENGTH OF STAY: Two days. The patient's plan for discharge tomorrow to return to [facility]. PRINCESS DR: Adarsh TID: [id number]
[2020-12-24 05:37] VITALS: BP 149/92
[2020-12-24] MEDS: CETIRIZINE HCL 10 MG TABLET PO SCH (07:56)
[2020-12-24] MEDS: OLANZapine 10 MG TABLET PO SCH (07:56)
[2020-12-24 07:57] VITALS: BP 149/92
[2020-12-24] MEDS: PANTOPRAZOLE 40 MG TABLET. PO SCH (07:57)
[2020-12-24] MEDS: LOSARTAN 50 MG TABLET. PO SCH (07:57)
[2020-12-24] MEDS: POTASSIUM CHLORIDE 10 MEQ TABLET.ER. PO SCH (07:57)
[2020-12-24] MEDS: metFORMIN 500 MG TABLET PO SCH (07:57)
[2020-12-24] MEDS: amLODIPine BESYLATE 5 MG TABLET PO SCH (07:57)
[2020-12-25] MEDS ORDERED: CARBAMIDE PEROXIDE 6.5% OTIC SOLUTION 15ML BOTTLE. AU SCH (09:00)
--- NOTE | 2020-12-27 21:20 | DS ---
DATE OF DISCHARGE: 12/24/2020 FINAL DIAGNOSES: AXIS I: 1. Bipolar disorder, mixed with psychotic features. 2. Anxiety disorder, unspecified. 3. Impulse control disorder, unspecified. 4. Mild cognitive disorder. REASON FOR ADMISSION: This 65-year-old male was referred from [facility], referred by his outpatient psychiatrist and primary care physician on account of an acute exacerbation of his bipolar disorder and recent altered mental status with increased confusion. HISTORY OF PRESENT ILLNESS: The patient has a history of bipolar disorder. He has been residing at the above facility for some time. Recently getting more confused, worsening mood swings, changes in sleep and appetite and also exhibiting increased agitation, marked mood lability, disruptive and aggressive behaviors and also a failed outpatient psychiatric treatment. The patient did not express any suicidal or homicidal thoughts at the time of admission. HOSPITAL COURSE: The patient had a physical exam, routine lab work including CBC, chem profile, urinalysis. Patient's glucose was 113. Hemoglobin A1c was 7.7. The patient's TSH was 0.813. The patient's Depakote level was 54. The patient's urinalysis was within normal limits. The patient was enrolled in the program including individual therapy, group therapy and activity therapy. Patient was continued on his medications including mirtazapine 15 mg at night, olanzapine 10 mg daily, Depakote 500 mg at night and trazodone 100 mg at night p.r.n. for sleep. ASSESSMENT: 1. Bipolar disorder, mixed with psychotic features. 2. Anxiety disorder, unspecified. Plan is to continue with treatment. The patient did not have any side effects to medications. Patient continues to show improvement. The patient did not express any suicidal or homicidal thoughts and no major behavior problems. AFTERCARE PLANS: The patient will return to [facility] and continue with the medication listed above and recommend that he continue to see a psychiatrist for his medication management. TERA DR: Adarsh TID: [id number]
== END 2020-12-24 11:00 | DRG 885 ==
LOC: GEROPSY 10:56
PROVIDERS: ADMIT Psychiatry & Neurology Psychiatry; ATTEND Psychiatry & Neurology Psychiatry
DX: F31.64 Bipolar disorder, current episode mixed, severe, with psychotic features (principal); F79 Unspecified intellectual disabilities; J98.11 Atelectasis; E11.9 Type 2 diabetes mellitus without complications; E78.5 Hyperlipidemia, unspecified; E87.6 Hypokalemia; F03.90 Unspecified dementia, unspecified severity, without behavioral disturbance, psychotic disturbance, mood disturbance, and anxiety; F41.9 Anxiety disorder, unspecified; F63.9 Impulse disorder, unspecified; G47.00 Insomnia, unspecified; H54.8 Legal blindness, as defined in USA; I10 Essential (primary) hypertension; Z91.81 History of falling; Z79.899 Other long term (current) drug therapy
CPT/HCPCS: 36415; 80053; 80061; 80164; 81001; 82306; 82607; 82947; 83036; 83540; 83550; 83735; 84436; 84443; 84480; 85025; 85379; 86592; 93005; 97535